=== PATIENT | male | born 1960 | race Caucasian/White ===

== ENCOUNTER → 2020-10-03 13:44 | Outpatient (CLI) | payer BC, SELFPAY ==
[2020-09-11 09:37] VITALS: BMI 22.8
--- NOTE | 2020-10-03 13:47 | RAD_ITS ---
STUDY: X-RAY - RIGHT KNEE REASON FOR EXAM: Male, 60 years old. Right knee pain-medial TECHNIQUE: 4 view(s) of the knee. COMPARISON: None. FINDINGS: Normal visualized distal femur. Normal visualized proximal tibia and fibula. Normal proximal tibiofibular articulation. Normal medial femorotibial compartment. Normal lateral femorotibial compartment. Normal patellofemoral articulation. The soft tissue structures are unremarkable. RAD/Knee 4 or More Views IMPRESSION: Normal x-ray examination of the knee. Electronically Signed: Juan Schulz DO at 21:09 EST Tel [phone], Service support ,
== END ==
PROVIDERS: PCP Family Medicine; Referring Provider Family Medicine; Visit Provider Family Medicine
DX: M17.11 Unilateral primary osteoarthritis, right knee (principal)
CPT/HCPCS: 73564

== ENCOUNTER → 2021-02-18 14:18 | Outpatient (CLI) | payer BC, SELFPAY ==
[2020-09-11 09:37] VITALS: BMI 22.8
--- NOTE | 2021-02-18 14:30 | RAD_ITS ---
STUDY: X-RAY - RIGHT HAND REASON FOR EXAM: Right hand pain, osteoarthritis. TECHNIQUE: 3 view(s) of the hand. COMPARISON: Radiographs 09/11/2020. FINDINGS: Normal radiocarpal articulation. Normal distal radioulnar joint. Normal visualized carpal bones. Normal carpal articulations There is resection arthroplasty of the carpometacarpal articulation of the thumb. Normal second through fifth carpometacarpal joints. Normal metacarpi. There is mild joint space narrowing of the metacarpophalangeal joint of the thumb. There is moderate joint space narrowing of the interphalangeal joint of the thumb. Normal proximal and distal phalanges of the thumb. There is a small subchondral cyst of the second metacarpal head as on the prior study. Otherwise, unremarkable metacarpophalangeal joints of the second through fifth fingers. There is joint space narrowing and marginal osteophytes of the distal interphalangeal joints of the second through fifth fingers with central erosive changes as on the prior study. Normal phalanges of the second through fifth fingers. The soft tissue structures are unremarkable. RAD/Hand Min 3 Views IMPRESSION: Erosive osteoarthritis. Resection arthroplasty of the first carpometacarpal articulation. Electronically Signed: Tom Brian MD at 12:27 EDT Tel , Service support ,
--- NOTE | 2021-02-18 14:30 | RAD_ITS ---
STUDY: X-RAY - LEFT HAND REASON FOR EXAM: Left hand pain, osteoarthritis. TECHNIQUE: 3 view(s) of the hand. COMPARISON: Radiographs 09/11/2020. FINDINGS: Normal radiocarpal articulation. Normal distal radioulnar joint. Normal visualized carpal bones. Normal carpal articulations There is resection arthroplasty of the carpometacarpal articulation of the thumb. Normal second through fifth carpometacarpal joints. Normal metacarpi. There is mild joint space narrowing of the metacarpophalangeal joint of the thumb. There is moderate joint space narrowing of the interphalangeal joint of the thumb. Normal proximal and distal phalanges of the thumb. Normal metacarpophalangeal joints of the second through fifth fingers. There is joint space narrowing of the distal interphalangeal joints of the second through fifth fingers with marginal osteophytes and central erosive changes of the second, third and fifth distal interphalangeal joints as on the prior study. Normal phalanges of the second through fifth fingers. The soft tissue structures are unremarkable. RAD/Hand Min 3 Views IMPRESSION: Erosive osteoarthritis. Resection arthroplasty of the first carpometacarpal articulation. Electronically Signed: Tom Brian MD at 12:28 EDT Tel , Service support ,
[2021-02-18 17:44] LABS: Absolute Lymphocyte Count 1.76 X10^3/uL (0.83-4.51); Basophil# 0.04 X10^3/uL; Basophil% 0.9 % (0-1); Eosinophil# 0.18 X10^3/uL; Eosinophils% 4.1 % (0-5); Hematocrit 43.2 % (40-54); Hemoglobin 13.8 g/dL (13.0-16.5); Lymphocyte # 1.76 X10^3/ul (4.0); Lymphocyte % 40.5 % (19-41); Mean Corp Hgb Conc 31.9 g/dL (32-36); Mean Corpuscular Hgb 30.4 pg (27.0-32.0); Mean Corpuscular Volume 95.2 fL (80-94); Mean Platelet Vol. 11.1 fl (6.2-12.0); Monocyte# 0.41 X10^3/uL; Monocyte% 9.4 % (0-10); NRBC Flagged by Analyzer 0 % (0-5); Neutrophil # 1.96 X10^3/uL (2.7-7.7); Neutrophil % 45.1 % (47-70); Platelet Count 325 K/mm3 (150-450); RBC Distribution Width CV 11.9 % (11.6-14.6); RBC Distribution Width SD 41.5 fl (35.1-43.9); Red Blood Count 4.54 M/mm3 (4.6-6.2); White Blood Count 4.4 K/mm3 (4.4-11.0)
[2021-02-18 18:05] LABS: ALB/GLOB Ratio 1.1 RATIO (0.9-2.4); AST(SGOT) 39 U/L (15-37); Alanine Aminotransfer ALT/SGPT 36 U/L (16-61); Albumin, Serum 4.2 g/dL (3.2-5.0); Alkaline Phosphatase 119 U/L (45-117); Anion Gap 7 (5-15); BUN 32 mg/dL (7-18); BUN/Creat Ratio 24.1 RATIO (10-20); CRP < 2.90 mg/L (0.0-3.0); Calcium,Total 9.7 mg/dL (8.5-10.1); Chloride 104 mmol/L (98-107); Creatinine, Serum 1.33 mg/dL (0.70-1.30); EST Glomerular Filtration Rate 58 mL/min (>60); Est Glom Filt Rate - Afr Amer 71 mL/min (>60); Globulin 3.7 g/dL (2.2-4.2); Glucose 91 mg/dL (74-106); Potassium 4.3 mmol/L (3.5-5.1); Protein, Total 7.9 g/dL (6.4-8.2); Rheumatoid Factor < 10.0 IU/mL (<15); Sodium Level 140 mmol/L (136-145)
[2021-02-18 18:14] LABS: Erythrocyte Sedimentation Rate 14 mm/hr (0-20)
[2021-02-19 09:43] LABS: Hepatitis B Surface Antibody Non-Reactive; Hepatitis B Surface Antigen Non-Reactive (Nonreactive); Hepatitis C Antibody Non-Reactive (Nonreactive)
[2021-02-20 16:18] LABS: ANTINUCLEAR ANTIBODIES DIRECT Negative (Negative)
[2021-02-21 07:50] LABS: CCP IgG Antibodies 5 units (0-19)
== END ==
PROVIDERS: PCP Family Medicine; Referring Provider Internal Medicine Rheumatology; Visit Provider Internal Medicine Rheumatology
DX: L40.59 Other psoriatic arthropathy (principal); L40.8 Other psoriasis; M19.041 Primary osteoarthritis, right hand; M47.892 Other spondylosis, cervical region; K58.0 Irritable bowel syndrome with diarrhea; F32.9 Major depressive disorder, single episode, unspecified; F41.9 Anxiety disorder, unspecified; J45.909 Unspecified asthma, uncomplicated; E78.5 Hyperlipidemia, unspecified
CPT/HCPCS: 36415; 73130; 80053; 85025; 85652; 86038; 86140; 86200; 86431; 86706; 86803; 87340

== ENCOUNTER → 2021-04-27 08:02 | Outpatient (CLI) | payer BC, SELFPAY ==
[2020-09-11 09:37] VITALS: BMI 22.8
--- NOTE | 2021-04-27 08:04 | US_ITS ---
STUDY: ABDOMINAL ULTRASOUND - RIGHT UPPER QUADRANT REASON FOR VISIT: Male, 61 years old ELEVATED LFT TECHNIQUE: Ultrasound evaluation of the right upper quadrant was performed with real-time and static sneed-scale imaging. TECHNICAL QUALITY: Adequate. COMPARISON: None. FINDINGS: Liver: The liver measures 17.8 cm. There is a mild degree of increased echogenicity consistent with mild degree of fatty infiltration. The bile ducts are within normal limits. There is hepatic color flow. The direction of portal flow is hepatopetal. There is no demonstrated mass lesion. Gallbladder: Normal distended gallbladder. The gallbladder wall measures 1.9 mm. There is a negative sonographic Ghosh''s sign. There is no pericholecystic fluid. There are no gallstones. Common Bile Duct (C.B.D.): The common bile duct measures 2.9 mm. Pancreas: Normal size of the head, body and tail of the pancreas. There is increased echogenicity of the pancreas. There is no demonstrated pancreatic mass or cyst. Right Kidney: Normal size of the right kidney. The right kidney measures 10.9 cm x 4.6 cm x 5.1 cm. Normal renal cortex. The right cortex measures 1.3 cm. There is no demonstrated renal mass or cyst. There is no right hydronephrosis. US/Liver IMPRESSION: Mild degree of fatty infiltration of the liver. Electronically Signed: Elmer Shay MD at 10:21 EDT , Service support ,
[2021-04-27 10:02] LABS: ALB/GLOB Ratio 1.1 RATIO (0.9-2.4); AST(SGOT) 31 U/L (15-37); Alanine Aminotransfer ALT/SGPT 26 U/L (16-61); Albumin, Serum 3.7 g/dL (3.2-5.0); Alkaline Phosphatase 102 U/L (45-117); Anion Gap 8 (5-15); BUN 28 mg/dL (7-18); BUN/Creat Ratio 22.6 RATIO (10-20); Calcium,Total 9.1 mg/dL (8.5-10.1); Chloride 103 mmol/L (98-107); Creatinine, Serum 1.24 mg/dL (0.70-1.30); EST Glomerular Filtration Rate 63 mL/min (>60); Est Glom Filt Rate - Afr Amer 76 mL/min (>60); Globulin 3.5 g/dL (2.2-4.2); Glucose 87 mg/dL (74-106); Potassium 4.1 mmol/L (3.5-5.1); Protein, Total 7.2 g/dL (6.4-8.2); Sodium Level 142 mmol/L (136-145)
== END ==
PROVIDERS: PCP Family Medicine; Referring Provider Internal Medicine Rheumatology; Visit Provider Internal Medicine Rheumatology
DX: L40.59 Other psoriatic arthropathy (principal); L40.8 Other psoriasis; M19.041 Primary osteoarthritis, right hand; M47.892 Other spondylosis, cervical region; K58.0 Irritable bowel syndrome with diarrhea; F41.9 Anxiety disorder, unspecified; J45.909 Unspecified asthma, uncomplicated; E78.5 Hyperlipidemia, unspecified
CPT/HCPCS: 36415; 76705; 80053

== ENCOUNTER → 2021-07-01 16:09 | Outpatient (CLI) | payer BC, SELFPAY ==
[2020-09-11 09:37] VITALS: BMI 22.8
[2021-07-01 17:45] LABS: Absolute Lymphocyte Count 1.71 X10^3/uL (0.83-4.51); Absolute Neutrophil Count 2.3 X10^3/uL (2.0-7.7); Basophil# 0.04 X10^3/uL; Basophil% 0.8 % (0-1); Eosinophil# 0.28 X10^3/uL; Eosinophils% 5.7 % (0-5); Hematocrit 37.3 % (40-54); Hemoglobin 12.4 g/dL (13.0-16.5); Lymphocyte # 1.71 X10^3/ul (0.83-4.51); Lymphocyte % 34.9 % (19-41); Mean Corp Hgb Conc 33.2 g/dL (32-36); Mean Corpuscular Volume 96.4 fL (80-94); Monocyte# 0.52 X10^3/uL; Monocyte% 10.6 % (0-10); NRBC Flagged by Analyzer 0 % (0-5); Neutrophil # 2.32 X10^3/uL (2.7-7.7); Neutrophil % 47.4 % (47-70); Platelet Count 321 K/mm3 (150-450); RBC Distribution Width CV 13.1 % (11.6-14.6); RBC Distribution Width SD 45.1 fl (35.1-43.9); Red Blood Count 3.87 M/mm3 (4.6-6.2); White Blood Count 4.9 K/mm3 (4.4-11.0)
[2021-07-01 18:13] LABS: ALB/GLOB Ratio 1.1 RATIO (0.9-2.4); AST(SGOT) 27 U/L (15-37); Alanine Aminotransfer ALT/SGPT 32 U/L (16-61); Albumin, Serum 3.7 g/dL (3.2-5.0); Alkaline Phosphatase 93 U/L (45-117); Anion Gap 5 (5-15); BUN 25 mg/dL (7-18); BUN/Creat Ratio 20.2 RATIO (10-20); Chloride 103 mmol/L (98-107); Creatinine, Serum 1.24 mg/dL (0.70-1.30); EST Glomerular Filtration Rate 63 mL/min (>60); Est Glom Filt Rate - Afr Amer 76 mL/min (>60); Globulin 3.5 g/dL (2.2-4.2); Glucose 120 mg/dL (74-106); Potassium 3.9 mmol/L (3.5-5.1); Protein, Total 7.2 g/dL (6.4-8.2); Sodium Level 139 mmol/L (136-145)
== END ==
PROVIDERS: PCP Family Medicine; Referring Provider Internal Medicine Rheumatology; Visit Provider Internal Medicine Rheumatology
DX: L40.59 Other psoriatic arthropathy (principal); L40.8 Other psoriasis; M19.041 Primary osteoarthritis, right hand; K76.0 Fatty (change of) liver, not elsewhere classified; M47.892 Other spondylosis, cervical region; K58.0 Irritable bowel syndrome with diarrhea; F41.9 Anxiety disorder, unspecified; J45.909 Unspecified asthma, uncomplicated; E78.5 Hyperlipidemia, unspecified
CPT/HCPCS: 36415; 80053; 85025

== ENCOUNTER → 2021-08-11 13:13 | Outpatient (CLI) | payer BC, SELFPAY ==
--- NOTE | 2021-08-11 13:15 | RAD_ITS ---
STUDY: X-RAY CHEST REASON FOR EXAM: Male, 61 years old. Cough. COVID symptoms. TECHNIQUE: PA and lateral views of the chest. COMPARISON: None. FINDINGS: The lungs are well expanded. There is diffuse interstitial infiltrates at the lung bases. There is no demonstrated pleural abnormality. Normal size heart. Normal mediastinum and [place]. Normal visualized pulmonary arteries. Normal visualized aortic arch and descending thoracic aorta. Normal visualized thoracic spine. Normal visualized ribs, clavicles, and shoulders. There is no demonstrated abnormality of the visualized soft tissue structures of the upper abdomen. RAD/Chest PA and Lateral IMPRESSION: Bibasilar infiltrates. The findings are consistent with nondiagnostic COVID pneumonia. Electronically Signed: Freddy Powers DO at 23:49 EDT Tel [phone], Service support ,
== END ==
PROVIDERS: PCP Family Medicine; Referring Provider Family Medicine; Visit Provider Family Medicine
DX: R05 Cough (principal)
CPT/HCPCS: 71046

== ENCOUNTER → 2021-09-14 07:34 | Outpatient (CLI) | payer BC, SELFPAY ==
[2021-09-14 10:19] LABS: Absolute Lymphocyte Count 2.08 X10^3/uL (0.83-4.51); Absolute Neutrophil Count 1.2 X10^3/uL (2.0-7.7); Basophil# 0.04 X10^3/uL; Basophil% 1.1 % (0-1); Eosinophil# 0.18 X10^3/uL; Eosinophils% 4.8 % (0-5); Hematocrit 38.6 % (40-54); Hemoglobin 12.3 g/dL (13.0-16.5); Lymphocyte # 2.08 X10^3/ul (0.83-4.51); Lymphocyte % 55.8 % (19-41); Mean Corp Hgb Conc 31.9 g/dL (32-36); Mean Corpuscular Hgb 31.2 pg (27.0-32.0); Mean Platelet Vol. 10.3 fl (6.2-12.0); Monocyte# 0.21 X10^3/uL; Monocyte% 5.6 % (0-10); NRBC Flagged by Analyzer 0 % (0-5); Neutrophil # 1.21 X10^3/uL (2.7-7.7); Neutrophil % 32.4 % (47-70); Platelet Count 330 K/mm3 (150-450); RBC Distribution Width CV 14.2 % (11.6-14.6); RBC Distribution Width SD 50.6 fl (35.1-43.9); Red Blood Count 3.94 M/mm3 (4.6-6.2); White Blood Count 3.7 K/mm3 (4.4-11.0)
[2021-09-14 10:47] LABS: ALB/GLOB Ratio 0.9 RATIO (0.9-2.4); AST(SGOT) 27 U/L (15-37); Alanine Aminotransfer ALT/SGPT 29 U/L (16-61); Albumin, Serum 3.6 g/dL (3.2-5.0); Alkaline Phosphatase 103 U/L (45-117); Anion Gap 8 (5-15); BUN 30 mg/dL (7-18); BUN/Creat Ratio 25.6 RATIO (10-20); Calcium,Total 9.4 mg/dL (8.5-10.1); Chloride 102 mmol/L (98-107); Cholesterol 187 mg/dL (200); Creatinine, Serum 1.17 mg/dL (0.70-1.30); EST Glomerular Filtration Rate 67 mL/min (>60); Est Glom Filt Rate - Afr Amer 82 mL/min (>60); Globulin 3.9 g/dL (2.2-4.2); Glucose 93 mg/dL (74-106); High Density Lipoprotein 46 mg/dL; Potassium 4.1 mmol/L (3.5-5.1); Protein, Total 7.5 g/dL (6.4-8.2); Sodium Level 137 mmol/L (136-145); Triglycerides 180 mg/dL; Very Low Density Lipoprotein 36 mg/dL (5-40)
== END ==
PROVIDERS: PCP Family Medicine; Referring Provider Family Medicine; Visit Provider Family Medicine
DX: L40.50 Arthropathic psoriasis, unspecified (principal); M19.041 Primary osteoarthritis, right hand; M47.892 Other spondylosis, cervical region; E78.5 Hyperlipidemia, unspecified; K76.0 Fatty (change of) liver, not elsewhere classified; Z79.899 Other long term (current) drug therapy; K58.0 Irritable bowel syndrome with diarrhea; F41.9 Anxiety disorder, unspecified; J45.909 Unspecified asthma, uncomplicated
CPT/HCPCS: 36415; 80053; 80061; 85025

== ENCOUNTER → 2021-10-29 09:53 | Outpatient (CLI) | payer BC, SELFPAY ==
[2021-10-29 12:30] LABS: Absolute Lymphocyte Count 2.08 X10^3/uL (0.83-4.51); Absolute Neutrophil Count 2.6 X10^3/uL (2.0-7.7); Basophil# 0.06 X10^3/uL; Basophil% 1.1 % (0-1); Eosinophil# 0.17 X10^3/uL; Eosinophils% 3.2 % (0-5); Hematocrit 38.6 % (40-54); Hemoglobin 12.6 g/dL (13.0-16.5); Lymphocyte # 2.08 X10^3/ul (0.83-4.51); Lymphocyte % 38.9 % (19-41); Mean Corp Hgb Conc 32.6 g/dL (32-36); Mean Corpuscular Hgb 31.7 pg (27.0-32.0); Mean Platelet Vol. 10.3 fl (6.2-12.0); Monocyte# 0.45 X10^3/uL; Monocyte% 8.4 % (0-10); NRBC Flagged by Analyzer 0 % (0-5); Neutrophil # 2.56 X10^3/uL (2.7-7.7); Neutrophil % 47.8 % (47-70); Platelet Count 325 K/mm3 (150-450); RBC Distribution Width CV 14.5 % (11.6-14.6); RBC Distribution Width SD 50.4 fl (35.1-43.9); Red Blood Count 3.98 M/mm3 (4.6-6.2); White Blood Count 5.4 K/mm3 (4.4-11.0)
[2021-10-29 12:42] LABS: AST(SGOT) 31 U/L (15-37); Alanine Aminotransfer ALT/SGPT 36 U/L (16-61); Albumin, Serum 3.7 g/dL (3.2-5.0); Alkaline Phosphatase 93 U/L (45-117); Anion Gap 6 (5-15); BUN 23 mg/dL (7-18); BUN/Creat Ratio 18.7 RATIO (10-20); Calcium,Total 9.6 mg/dL (8.5-10.1); Chloride 106 mmol/L (98-107); Creatinine, Serum 1.23 mg/dL (0.70-1.30); EST Glomerular Filtration Rate 64 mL/min (>60); Est Glom Filt Rate - Afr Amer 77 mL/min (>60); Globulin 3.7 g/dL (2.2-4.2); Glucose 112 mg/dL (74-106); Potassium 4.1 mmol/L (3.5-5.1); Protein, Total 7.4 g/dL (6.4-8.2); Sodium Level 142 mmol/L (136-145)
== END ==
PROVIDERS: PCP Family Medicine; Referring Provider Internal Medicine Rheumatology; Visit Provider Internal Medicine Rheumatology
DX: L40.59 Other psoriatic arthropathy (principal); Z79.899 Other long term (current) drug therapy; L40.8 Other psoriasis; M19.041 Primary osteoarthritis, right hand; K76.0 Fatty (change of) liver, not elsewhere classified; M47.892 Other spondylosis, cervical region; K58.0 Irritable bowel syndrome with diarrhea; F41.9 Anxiety disorder, unspecified; J45.909 Unspecified asthma, uncomplicated; E78.5 Hyperlipidemia, unspecified
CPT/HCPCS: 36415; 80053; 85025

== ENCOUNTER 2021-12-30 08:47 | Outpatient (CLI) | payer BC, SELFPAY ==
[2021-12-30 10:24] LABS: Absolute Lymphocyte Count 2.15 X10^3/uL (0.83-4.51); Absolute Neutrophil Count 2.7 X10^3/uL (2.0-7.7); Basophil# 0.05 X10^3/uL; Basophil% 0.9 % (0-1); Eosinophils% 3.6 % (0-5); Hemoglobin 12.9 g/dL (13.0-16.5); Lymphocyte # 2.15 X10^3/ul (0.83-4.51); Mean Corp Hgb Conc 33.9 g/dL (32-36); Mean Corpuscular Hgb 32.8 pg (27.0-32.0); Mean Corpuscular Volume 96.7 fL (80-94); Mean Platelet Vol. 9.9 fl (6.2-12.0); Monocyte# 0.39 X10^3/uL; Monocyte% 7.1 % (0-10); NRBC Flagged by Analyzer 0 % (0-5); Platelet Count 311 K/mm3 (150-450); RBC Distribution Width CV 13.8 % (11.6-14.6); RBC Distribution Width SD 48.3 fl (35.1-43.9); Red Blood Count 3.93 M/mm3 (4.6-6.2); White Blood Count 5.5 K/mm3 (4.4-11.0)
[2021-12-30 11:00] LABS: ALB/GLOB Ratio 1.1 RATIO (0.9-2.4); AST(SGOT) 28 U/L (15-37); Alanine Aminotransfer ALT/SGPT 33 U/L (16-61); Albumin, Serum 3.7 g/dL (3.2-5.0); Alkaline Phosphatase 74 U/L (45-117); Anion Gap 4 (5-15); BUN 25 mg/dL (7-18); BUN/Creat Ratio 20.2 RATIO (10-20); Chloride 107 mmol/L (98-107); Creatinine, Serum 1.24 mg/dL (0.70-1.30); EST Glomerular Filtration Rate 63 mL/min (>60); Est Glom Filt Rate - Afr Amer 76 mL/min (>60); Globulin 3.3 g/dL (2.2-4.2); Glucose 98 mg/dL (74-106); Potassium 3.8 mmol/L (3.5-5.1); Sodium Level 139 mmol/L (136-145)
== END 2021-12-30 23:59 | disposition home or self-care (01) ==
LOC: MTLAB 08:49
PROVIDERS: PCP Family Medicine; Referring Provider Internal Medicine Rheumatology; Visit Provider Internal Medicine Rheumatology
DX: L40.59 Other psoriatic arthropathy (principal); L40.8 Other psoriasis; M19.041 Primary osteoarthritis, right hand; M19.042 Primary osteoarthritis, left hand; K76.0 Fatty (change of) liver, not elsewhere classified; M47.892 Other spondylosis, cervical region; K58.0 Irritable bowel syndrome with diarrhea; F41.9 Anxiety disorder, unspecified; J45.909 Unspecified asthma, uncomplicated; J30.9 Allergic rhinitis, unspecified; E78.5 Hyperlipidemia, unspecified; Z79.899 Other long term (current) drug therapy
CPT/HCPCS: 36415; 80053; 85025

== ENCOUNTER 2022-02-23 10:39 | Outpatient (CLI) | payer BC, SELFPAY ==
[2022-02-23 12:04] LABS: Absolute Lymphocyte Count 1.47 X10^3/uL (0.83-4.51); Absolute Neutrophil Count 3.2 X10^3/uL (2.0-7.7); Basophil# 0.04 X10^3/uL; Basophil% 0.8 % (0-1); Eosinophil# 0.17 X10^3/uL; Eosinophils% 3.3 % (0-5); Hematocrit 37.5 % (40-54); Hemoglobin 12.4 g/dL (13.0-16.5); Lymphocyte # 1.47 X10^3/ul (0.83-4.51); Lymphocyte % 28.2 % (19-41); Mean Corp Hgb Conc 33.1 g/dL (32-36); Mean Corpuscular Volume 99.7 fL (80-94); Mean Platelet Vol. 10.3 fl (6.2-12.0); Monocyte# 0.32 X10^3/uL; Monocyte% 6.1 % (0-10); NRBC Flagged by Analyzer 0 % (0-5); Neutrophil % 61.4 % (47-70); Platelet Count 349 K/mm3 (150-450); RBC Distribution Width CV 13.1 % (11.6-14.6); RBC Distribution Width SD 46.7 fl (35.1-43.9); Red Blood Count 3.76 M/mm3 (4.6-6.2); White Blood Count 5.2 K/mm3 (4.4-11.0)
[2022-02-23 12:24] LABS: ALB/GLOB Ratio 1.2 RATIO (0.9-2.4); AST(SGOT) 39 U/L (15-37); Alanine Aminotransfer ALT/SGPT 41 U/L (16-61); Albumin, Serum 4.1 g/dL (3.2-5.0); Alkaline Phosphatase 98 U/L (45-117); Anion Gap 0 (5-15); BUN 22 mg/dL (7-18); BUN/Creat Ratio 17.1 RATIO (10-20); Calcium,Total 9.6 mg/dL (8.5-10.1); Chloride 107 mmol/L (98-107); Creatinine, Serum 1.29 mg/dL (0.70-1.30); EST Glomerular Filtration Rate 60 mL/min (>60); Est Glom Filt Rate - Afr Amer 73 mL/min (>60); Globulin 3.5 g/dL (2.2-4.2); Glucose 93 mg/dL (74-106); Potassium 4.3 mmol/L (3.5-5.1); Protein, Total 7.6 g/dL (6.4-8.2); Sodium Level 139 mmol/L (136-145)
== END 2022-02-23 23:59 | disposition home or self-care (01) ==
LOC: MTLAB 10:41
PROVIDERS: PCP Family Medicine; Referring Provider Internal Medicine Rheumatology; Visit Provider Internal Medicine Rheumatology
DX: L40.59 Other psoriatic arthropathy (principal); Z79.899 Other long term (current) drug therapy; L40.8 Other psoriasis; M19.041 Primary osteoarthritis, right hand; K76.0 Fatty (change of) liver, not elsewhere classified; M47.892 Other spondylosis, cervical region; K58.0 Irritable bowel syndrome with diarrhea; F41.9 Anxiety disorder, unspecified; J45.909 Unspecified asthma, uncomplicated; J30.9 Allergic rhinitis, unspecified; E78.5 Hyperlipidemia, unspecified
CPT/HCPCS: 36415; 80053; 85025

== ENCOUNTER → 2022-04-26 | Outpatient (CLI) | payer BC, SELFPAY ==
[2022-04-26 12:31] LABS: Absolute Lymphocyte Count 1.45 X10^3/uL (0.83-4.51); Absolute Neutrophil Count 1.8 X10^3/uL (2.0-7.7); Basophil# 0.03 X10^3/uL; Basophil% 0.8 % (0-1); Eosinophil# 0.15 X10^3/uL; Hematocrit 39.3 % (40-54); Hemoglobin 12.8 g/dL (13.0-16.5); Lymphocyte # 1.45 X10^3/ul (0.83-4.51); Lymphocyte % 38.3 % (19-41); Mean Corp Hgb Conc 32.6 g/dL (32-36); Mean Corpuscular Hgb 32.7 pg (27.0-32.0); Mean Corpuscular Volume 100.3 fL (80-94); Mean Platelet Vol. 10.2 fl (6.2-12.0); Monocyte# 0.31 X10^3/uL; Monocyte% 8.2 % (0-10); NRBC Flagged by Analyzer 0 % (0-5); Neutrophil # 1.84 X10^3/uL (2.7-7.7); Neutrophil % 48.4 % (47-70); Platelet Count 311 K/mm3 (150-450); RBC Distribution Width CV 13.2 % (11.6-14.6); RBC Distribution Width SD 47.9 fl (35.1-43.9); Red Blood Count 3.92 M/mm3 (4.6-6.2); White Blood Count 3.8 K/mm3 (4.4-11.0)
[2022-04-26 12:39] LABS: ALB/GLOB Ratio 1.1 RATIO (0.9-2.4); AST(SGOT) 41 U/L (15-37); Alanine Aminotransfer ALT/SGPT 42 U/L (16-61); Albumin, Serum 3.7 g/dL (3.2-5.0); Alkaline Phosphatase 84 U/L (45-117); Anion Gap 5 (5-15); BUN 29 mg/dL (7-18); Calcium,Total 9.1 mg/dL (8.5-10.1); Chloride 103 mmol/L (98-107); Creatinine, Serum 1.32 mg/dL (0.70-1.30); EST Glomerular Filtration Rate 59 mL/min (>60); Est Glom Filt Rate - Afr Amer 71 mL/min (>60); Globulin 3.3 g/dL (2.2-4.2); Glucose 107 mg/dL (74-106); Potassium 4.4 mmol/L (3.5-5.1); Sodium Level 137 mmol/L (136-145)
== END | disposition home or self-care (01) ==
LOC: MTLAB 11:07
PROVIDERS: PCP Family Medicine; Referring Provider Internal Medicine Rheumatology; Visit Provider Internal Medicine Rheumatology
DX: L40.59 Other psoriatic arthropathy (principal); L40.8 Other psoriasis; M19.041 Primary osteoarthritis, right hand; K76.0 Fatty (change of) liver, not elsewhere classified; M47.892 Other spondylosis, cervical region; K58.0 Irritable bowel syndrome with diarrhea; F41.9 Anxiety disorder, unspecified; J45.909 Unspecified asthma, uncomplicated; E78.5 Hyperlipidemia, unspecified; Z79.899 Other long term (current) drug therapy
CPT/HCPCS: 36415; 80053; 85025

== ENCOUNTER → 2022-05-26 | Outpatient (CLI) | payer BC, SELFPAY ==
[2022-05-26 15:28] LABS: ALB/GLOB Ratio 1.1 RATIO (0.9-2.4); AST(SGOT) 42 U/L (15-37); Alanine Aminotransfer ALT/SGPT 35 U/L (16-61); Albumin, Serum 3.9 g/dL (3.2-5.0); Alkaline Phosphatase 84 U/L (45-117); Anion Gap 4 (5-15); BUN 28 mg/dL (7-18); BUN/Creat Ratio 20.6 RATIO (10-20); Calcium,Total 9.4 mg/dL (8.5-10.1); Chloride 102 mmol/L (98-107); Creatinine, Serum 1.36 mg/dL (0.70-1.30); EST Glomerular Filtration Rate 57 mL/min (>60); Est Glom Filt Rate - Afr Amer 68 mL/min (>60); Globulin 3.4 g/dL (2.2-4.2); Glucose 99 mg/dL (74-106); Protein, Total 7.3 g/dL (6.4-8.2); Sodium Level 138 mmol/L (136-145)
== END | disposition home or self-care (01) ==
LOC: MTLAB 13:51
PROVIDERS: PCP Family Medicine; Referring Provider Internal Medicine Rheumatology; Visit Provider Internal Medicine Rheumatology
DX: L40.59 Other psoriatic arthropathy (principal); L40.8 Other psoriasis; M19.041 Primary osteoarthritis, right hand; K76.0 Fatty (change of) liver, not elsewhere classified; M47.892 Other spondylosis, cervical region; K58.0 Irritable bowel syndrome with diarrhea; F41.9 Anxiety disorder, unspecified; J45.909 Unspecified asthma, uncomplicated; J30.9 Allergic rhinitis, unspecified; E78.5 Hyperlipidemia, unspecified; Z79.899 Other long term (current) drug therapy
CPT/HCPCS: 36415; 80053

== ENCOUNTER → 2022-08-03 | Outpatient (CLI) | payer SELFPAY ==
[2022-08-03 12:17] LABS: Absolute Lymphocyte Count 1.91 X10^3/uL (0.83-4.51); Absolute Neutrophil Count 2.9 X10^3/uL (2.0-7.7); Basophil# 0.04 X10^3/uL; Basophil% 0.7 % (0-1); Eosinophil# 0.14 X10^3/uL; Eosinophils% 2.6 % (0-5); Hematocrit 38.2 % (40-54); Hemoglobin 12.4 g/dL (13.0-16.5); Lymphocyte # 1.91 X10^3/ul (0.83-4.51); Lymphocyte % 35.3 % (19-41); Mean Corp Hgb Conc 32.5 g/dL (32-36); Mean Corpuscular Hgb 32.4 pg (27.0-32.0); Mean Corpuscular Volume 99.7 fL (80-94); Monocyte# 0.37 X10^3/uL; Monocyte% 6.8 % (0-10); NRBC Flagged by Analyzer 0 % (0-5); Neutrophil # 2.89 X10^3/uL (2.7-7.7); Neutrophil % 53.5 % (47-70); Platelet Count 320 K/mm3 (150-450); RBC Distribution Width CV 13.2 % (11.6-14.6); RBC Distribution Width SD 48.2 fl (35.1-43.9); Red Blood Count 3.83 M/mm3 (4.6-6.2); White Blood Count 5.4 K/mm3 (4.4-11.0)
[2022-08-03 12:38] LABS: ALB/GLOB Ratio 1.1 RATIO (0.9-2.4); AST(SGOT) 24 U/L (15-37); Alanine Aminotransfer ALT/SGPT 29 U/L (16-61); Albumin, Serum 3.6 g/dL (3.2-5.0); Alkaline Phosphatase 69 U/L (45-117); Anion Gap 6 (5-15); BUN 28 mg/dL (7-18); BUN/Creat Ratio 23.3 RATIO (10-20); Calcium,Total 8.9 mg/dL (8.5-10.1); Chloride 104 mmol/L (98-107); EST Glomerular Filtration Rate 65 mL/min (>60); Est Glom Filt Rate - Afr Amer 79 mL/min (>60); Globulin 3.2 g/dL (2.2-4.2); Glucose 104 mg/dL (74-106); Potassium 3.8 mmol/L (3.5-5.1); Protein, Total 6.8 g/dL (6.4-8.2); Sodium Level 139 mmol/L (136-145)
== END | disposition home or self-care (01) ==
LOC: MTLAB 09:50
PROVIDERS: PCP Family Medicine; Referring Provider Internal Medicine Rheumatology; Visit Provider Internal Medicine Rheumatology
DX: L40.59 Other psoriatic arthropathy (principal); Z79.899 Other long term (current) drug therapy; L40.8 Other psoriasis; M19.041 Primary osteoarthritis, right hand; K76.0 Fatty (change of) liver, not elsewhere classified; M47.892 Other spondylosis, cervical region; K58.0 Irritable bowel syndrome with diarrhea; F41.9 Anxiety disorder, unspecified; J45.909 Unspecified asthma, uncomplicated; E78.5 Hyperlipidemia, unspecified
CPT/HCPCS: 36415; 80053; 85025

== ENCOUNTER → 2022-12-10 | Outpatient (CLI) | payer BC, SELFPAY ==
[2022-12-10 15:29] LABS: Absolute Lymphocyte Count 1.49 X10^3/uL (0.83-4.51); Absolute Neutrophil Count 3.3 X10^3/uL (2.0-7.7); Basophil# 0.06 X10^3/uL; Eosinophil# 0.25 X10^3/uL; Eosinophils% 4.3 % (0-5); Hemoglobin 12.8 g/dL (13.0-16.5); Lymphocyte # 1.49 X10^3/ul (0.83-4.51); Lymphocyte % 25.7 % (19-41); Mean Corp Hgb Conc 32.8 g/dL (32-36); Mean Corpuscular Volume 97.5 fL (80-94); Mean Platelet Vol. 10.5 fl (6.2-12.0); Monocyte# 0.69 X10^3/uL; Monocyte% 11.9 % (0-10); NRBC Flagged by Analyzer 0 % (0-5); Neutrophil # 3.29 X10^3/uL (2.7-7.7); Neutrophil % 56.8 % (47-70); Platelet Count 359 K/mm3 (150-450); RBC Distribution Width CV 12.7 % (11.6-14.6); RBC Distribution Width SD 44.8 fl (35.1-43.9); White Blood Count 5.8 K/mm3 (4.4-11.0)
[2022-12-10 16:18] LABS: ALB/GLOB Ratio 1.1 RATIO (0.9-2.4); AST(SGOT) 35 U/L (15-37); Alanine Aminotransfer ALT/SGPT 35 U/L (16-61); Albumin, Serum 3.7 g/dL (3.2-5.0); Alkaline Phosphatase 86 U/L (45-117); Anion Gap 7 (5-15); BUN 21 mg/dL (7-18); BUN/Creat Ratio 17.2 RATIO (10-20); Calcium,Total 9.4 mg/dL (8.5-10.1); Chloride 104 mmol/L (98-107); Creatinine, Serum 1.22 mg/dL (0.70-1.30); EST Glomerular Filtration Rate 64 mL/min (>60); Est Glom Filt Rate - Afr Amer 77 mL/min (>60); Globulin 3.5 g/dL (2.2-4.2); Glucose 100 mg/dL (74-106); Potassium 4.1 mmol/L (3.5-5.1); Protein, Total 7.2 g/dL (6.4-8.2); Sodium Level 139 mmol/L (136-145)
== END | disposition home or self-care (01) ==
LOC: MTLAB 12:37
PROVIDERS: PCP Family Medicine; Referring Provider Internal Medicine Rheumatology; Visit Provider Internal Medicine Rheumatology
DX: Z79.899 Other long term (current) drug therapy (principal); L40.59 Other psoriatic arthropathy; L40.8 Other psoriasis; M19.041 Primary osteoarthritis, right hand; K76.0 Fatty (change of) liver, not elsewhere classified; M47.892 Other spondylosis, cervical region; K58.0 Irritable bowel syndrome with diarrhea; F41.9 Anxiety disorder, unspecified; J45.909 Unspecified asthma, uncomplicated; E78.5 Hyperlipidemia, unspecified
CPT/HCPCS: 36415; 80053; 85025

== ENCOUNTER → 2022-12-27 | Outpatient (CLI) | payer BC, SELFPAY ==
[2022-12-27 10:45] LABS: Cholesterol 194 mg/dL (200); High Density Lipoprotein 41 mg/dL; Triglycerides 178 mg/dL; Very Low Density Lipoprotein 36 mg/dL (5-40)
== END | disposition home or self-care (01) ==
LOC: MTLAB 08:12
PROVIDERS: PCP Family Medicine; Referring Provider Family Medicine; Visit Provider Family Medicine
DX: E78.5 Hyperlipidemia, unspecified (principal)
CPT/HCPCS: 36415; 80061

== ENCOUNTER → 2023-01-10 | Outpatient (CLI) | payer BC, SELFPAY ==
--- NOTE | 2023-01-10 11:30 | RAD_ITS ---
STUDY: X-RAY - CERVICAL SPINE REASON FOR EXAM: Male, 62 years old. Chronic neck pain. TECHNIQUE: 4 view(s) of the cervical spine were obtained including oblique views.. COMPARISON: None FINDINGS: There are degenerative changes of the anterior atlantoaxial articulation. Normal odontoid process. There is straightening of the normal cervical lordosis. There is multi-level endplate spondylosis. There is multi-level degenerative disc disease with multilevel disc space narrowing. Normal visualized intervertebral neuroforamina. The soft tissue structures are unremarkable. RAD/Cerv Spine 4 or 5 Views IMPRESSION: Loss of the normal cervical lordosis. Multilevel disc space narrowing and spondylosis. Electronically Signed: Elmer Shay MD at 12:44 EST ,
== END | disposition home or self-care (01) ==
LOC: MTRAD 11:22
PROVIDERS: PCP Family Medicine; Referring Provider Family Medicine; Visit Provider Family Medicine
DX: M47.812 Spondylosis without myelopathy or radiculopathy, cervical region (principal)
CPT/HCPCS: 72050

== ENCOUNTER 2023-02-14 10:30 | Outpatient (RCR) | payer BC, SELFPAY ==
--- NOTE | 2023-01-20 16:22 | HP.PTEVAL ---
Patient's Visit Information NICOLE LONDONO is a 62 year old M referred to Physical Therapy by Dr. Leonarda Hare MD with a diagnosis of Cervical Spond. Date of Evaluation: 01/20/23 Physical Therapist: Lucy Urena DPT - Visit Plan Frequency: 2x /Week Duration: 4 Weeks Plan: Focus on postural correction, manual therapy to sub occipitals and cervical spine with US as mod of choice. HEP Given IE: postural education, workspace ergonomics, scap retraction, chin tucks, UT and levator stretch - Subjective Patient reports that he has had neck pain since 2012 (insidious onset) he has dealt with it since 2012 on Mobic/Meloxicam and he saw MD who took him off. He saw his PCP who did x-rays which showed OA and she sent him to PT. He went to see a chiro in 2012 and he kept trying to crack his neck and never went back. He has neck pain all the time. The pain is located along the right side paraspinals that when he turns to the right he has suboccipital area. He only had pain on the right but its now left too. He has pain in CT junction with pain with extension, no pain with flexion. Worst: 3/10. Agg: end of day, tired and reading. Best: 11/30. Eases: Acetaminophen. Sleep: feels then it goes away- right side sleeper. Describes the pain as dull achy but it grabs when he moves to quickly. No radiating pain- no N/T. 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 Office he has a desk but at home he is sitting on the couch. No CADENA, blurred vision or dizziness. Right hand dominate. She just put him on Plaquenil which helps with helps with hands but not his neck. PMHx/Meds: no changes scanned in chart. - Objective Posture: FH, RS- can correct but does not maintain. Gait: good arm swing and trunk rotation. Palpation: tender along parapsinals, sub occipitals, upper trap, levator. ROM: WFL in all planes but reports pain with SB and rotation. Strength: Scap: fair minus, Shoulder: 4+/5, Elbow: 5/5, Wrist: 5/5 - Balance/Special Test Scores Oswestry Neck Score: 7 - Goals Goal 1:: Patient will be I with HEP and progression Goal Time Frame: 4-6 Weeks Goal 2:: Patient will maintain proper posture t/o tx session to demo increased scap s/s Goal Time Frame: 4-6 Weeks Goal 3:: Patient will report 80% improvement Goal Time Frame: 4-6 Weeks - Rehabilitation Potential Physical Therapy Diagnosis: Patient presents with hypomobility- he has decreased scap s/s and muscular endurance leading to poor posture and increased pain with ADL's. Rehabilitation Potential: Good - Anticipated Interventions Patient/Client Instruction: Educate patient on: Benefits of Fitness Program Therapeutic Exercise to Include: Strength training, Endurance training, Balance training, Coordination, Agility training, Body mechanics, Postural training, Flexibilty training, Neuromotor development, Dynamic Lumbar Stabilization, Scapular Strength/Stabilization For the Purpose of:: To improve muscle performance and motor function TENS: Yes Cryotherapy (ice pack, ice massage): Yes Thermo therapy (hot pack): Yes Thank you for the opportunity to evaluate your patient. For Medicare and Medicare HMO plans, please review the plan of care and approve it. It will need to be FAXED BACK to us at [phone] for Medicare purposes. For Medicare only, by signing this I certify the plan of care. Please let me know if there are questions or concerns regarding this plan of care. Physician Signature: Date:
--- NOTE | 2023-02-14 11:16 | HP.PTDCSUM ---
It has been my pleasure to treat NICOLE LONDONO referred by Dr. Leonarda Hare MD, with the diagnosis of Cervical Spond for a total of 7 visit(s). Discharge Date: Please see the following information for a summary of their discharge status. Subjective: Patient reports that he woke up this morning without pain on the left and just a little on the right. He is a lot more aware of his posture- he has been able to modify his work station. neck Pain Intensity (Out of 10): 3 % Improvement: 75 Objective/Function: Posture: good throughout session Gait: good arm swing and trunk rotation. Palpation: tender along sub occipitals on the right ROM: WFL in all planes without pain or discomfort. Strength: Scap: fair plus, Shoulder: 4+/5, Elbow: 5/5, Wrist: 5/5 Goal 1:: Patient will be I with HEP and progression Goal Progress: Goal Met Goal 2:: Patient will maintain proper posture t/o tx session to demo increased scap s/s Goal Progress: Goal Met Goal 3:: Patient will report 80% improvement Goal Progress: Progressing Plan: 02/14/23: Discharge to I HEP- gave blue band for HEP progression. Focus on postural correction, manual therapy to sub occipitals and cervical spine with US as mod of choice. HEP Given IE: postural education, workspace ergonomics, scap retraction, chin tucks, UT and levator stretch If there are questions or concerns regarding this patient's physical therapy, please feel free to call me at [phone]. Thank you for the referral of this patient. Sincerely, Lucy Urena, DPT Balance/Gait/Functional tests - Balance/Special Test Scores Oswestry Neck Score: 2
== END 2023-02-14 19:00 | disposition home or self-care (01) ==
LOC: PT 10:30
PROVIDERS: PCP Family Medicine; Referring Provider Family Medicine; Visit Provider Family Medicine
DX: M47.812 Spondylosis without myelopathy or radiculopathy, cervical region (principal)
CPT/HCPCS: 97035; 97110; 97140; 97162; 97164; 97530

== ENCOUNTER → 2023-03-03 | Outpatient (CLI) | payer BC, SELFPAY ==
[2023-03-03 17:49] LABS: Absolute Lymphocyte Count 1.91 X10^3/uL (0.83-4.51); Absolute Neutrophil Count 2.6 X10^3/uL (2.0-7.7); Basophil# 0.06 X10^3/uL; Basophil% 1.1 % (0-1); Eosinophil# 0.22 X10^3/uL; Eosinophils% 4.1 % (0-5); Hematocrit 38.4 % (40-54); Hemoglobin 12.6 g/dL (13.0-16.5); Lymphocyte # 1.91 X10^3/ul (0.83-4.51); Lymphocyte % 35.4 % (19-41); Mean Corp Hgb Conc 32.8 g/dL (32-36); Mean Corpuscular Hgb 31.7 pg (27.0-32.0); Mean Corpuscular Volume 96.7 fL (80-94); Mean Platelet Vol. 9.8 fl (6.2-12.0); Monocyte# 0.56 X10^3/uL; Monocyte% 10.4 % (0-10); NRBC Flagged by Analyzer 0 % (0-5); Neutrophil # 2.64 X10^3/uL (2.7-7.7); Neutrophil % 48.8 % (47-70); Platelet Count 314 K/mm3 (150-450); RBC Distribution Width CV 13.1 % (11.6-14.6); RBC Distribution Width SD 45.5 fl (35.1-43.9); Red Blood Count 3.97 M/mm3 (4.6-6.2); White Blood Count 5.4 K/mm3 (4.4-11.0)
[2023-03-03 18:25] LABS: ALB/GLOB Ratio 1.3 RATIO (0.9-2.4); AST(SGOT) 36 U/L (15-37); Alanine Aminotransfer ALT/SGPT 33 U/L (16-61); Alkaline Phosphatase 82 U/L (45-117); Anion Gap 4 (5-15); BUN 29 mg/dL (7-18); BUN/Creat Ratio 22.7 RATIO (10-20); Calcium,Total 9.3 mg/dL (8.5-10.1); Chloride 104 mmol/L (98-107); Creatinine, Serum 1.28 mg/dL (0.70-1.30); EST Glomerular Filtration Rate 61 mL/min (>60); Est Glom Filt Rate - Afr Amer 73 mL/min (>60); Glucose 96 mg/dL (74-106); Sodium Level 136 mmol/L (136-145)
== END | disposition home or self-care (01) ==
LOC: MTLAB 15:04
PROVIDERS: PCP Family Medicine; Referring Provider Internal Medicine Rheumatology; Visit Provider Internal Medicine Rheumatology
DX: L40.59 Other psoriatic arthropathy (principal); Z79.899 Other long term (current) drug therapy
CPT/HCPCS: 36415; 80053; 85025

== ENCOUNTER → 2023-05-30 | Outpatient (CLI) | payer BC, SELFPAY ==
[2023-05-30 12:36] LABS: Absolute Lymphocyte Count 1.34 X10^3/uL (0.83-4.51); Absolute Neutrophil Count 1.4 X10^3/uL (2.0-7.7); Basophil# 0.04 X10^3/uL; Basophil% 1.2 % (0-1); Eosinophil# 0.15 X10^3/uL; Eosinophils% 4.5 % (0-5); Hemoglobin 12.3 g/dL (13.0-16.5); Lymphocyte # 1.34 X10^3/ul (0.83-4.51); Lymphocyte % 40.6 % (19-41); Mean Corp Hgb Conc 33.2 g/dL (32-36); Mean Corpuscular Hgb 32.4 pg (27.0-32.0); Mean Corpuscular Volume 97.4 fL (80-94); Mean Platelet Vol. 9.5 fl (6.2-12.0); Monocyte# 0.36 X10^3/uL; Monocyte% 10.9 % (0-10); NRBC Flagged by Analyzer 0 % (0-5); Neutrophil % 42.5 % (47-70); Platelet Count 299 K/mm3 (150-450); RBC Distribution Width CV 12.9 % (11.6-14.6); RBC Distribution Width SD 45.3 fl (35.1-43.9); White Blood Count 3.3 K/mm3 (4.4-11.0)
[2023-05-30 12:57] LABS: ALB/GLOB Ratio 1.2 RATIO (0.9-2.4); AST(SGOT) 33 U/L (15-37); Alanine Aminotransfer ALT/SGPT 29 U/L (16-61); Albumin, Serum 3.7 g/dL (3.2-5.0); Alkaline Phosphatase 68 U/L (45-117); Anion Gap 4 (5-15); BUN 20 mg/dL (7-18); BUN/Creat Ratio 15.2 RATIO (10-20); Calcium,Total 9.1 mg/dL (8.5-10.1); Chloride 107 mmol/L (98-107); Creatinine, Serum 1.32 mg/dL (0.70-1.30); EST Glomerular Filtration Rate 58 mL/min (>60); Est Glom Filt Rate - Afr Amer 71 mL/min (>60); Globulin 3.2 g/dL (2.2-4.2); Glucose 91 mg/dL (74-106); Potassium 4.3 mmol/L (3.5-5.1); Protein, Total 6.9 g/dL (6.4-8.2); Sodium Level 139 mmol/L (136-145)
== END | disposition home or self-care (01) ==
LOC: MTLAB 10:49
PROVIDERS: PCP Family Medicine; Referring Provider Internal Medicine Rheumatology; Visit Provider Internal Medicine Rheumatology
DX: L40.59 Other psoriatic arthropathy (principal); Z79.899 Other long term (current) drug therapy
CPT/HCPCS: 36415; 80053; 85025

== ENCOUNTER 2023-08-11 05:03 | Emergency (ER) | payer BC, SELFPAY ==
[2023-08-11 05:04] VITALS: BP 130/77; PULSE 83; RESP 16; TEMP 37.1; O2SAT 98; BMI 27.1
--- NOTE | 2023-08-11 05:11 | EX.ED.DYSGE1 ---
HPI History of Present Illness Chief Complaint: Nausea/Vomiting Narrative Narrative: Patient presents with positive COVID now nausea and vomiting. He started to get a mild dry cough on Tuesday but felt fine. Later in the evening Tuesday he got some myalgias. Subjective fevers. He has developed nausea. He was started on Paxlovid Tuesday at about 1 PM. About 6 PM he started with nausea. He then has been vomiting several times. No blood. No diarrhea. No real abdominal pain but he does get some cramping before vomiting all in the epigastric area. He has nothing at home for [facility] Medical History Anxiety and depression Asthma IBS (irritable bowel syndrome) thumb joint removal trigger finger release Home Medications albuterol sulfate 90 mcg/actuation aerosol inhaler (ProAir HFA) 2 puff inhalation Q6H PRN 09/11/20 [History Last Taken Unknown] budesonide-formoterol HFA 160 mcg-4.5 mcg/actuation aerosol inhaler (Symbicort) 2 puff inhalation BID 09/11/20 [History Last Taken Unknown] cetirizine 10 mg tablet (Allergy Relief (cetirizine)) 10 mg PO DAILY 09/11/20 [History Last Taken Unknown] gemfibrozil 600 mg tablet 600 mg PO BID 09/11/20 [History Last Taken Unknown] guaifenesin 400 mg tablet 400 mg PO Q4H 09/11/20 [History Last Taken Unknown] loperamide 2 mg tablet 2 mg PO Q6H PRN 09/11/20 [History Last Taken Unknown] multivitamin with minerals (Men's One Daily tablet) 1 tab PO DAILY 09/11/20 [History Last Taken Unknown] vilazodone 40 mg tablet (Viibryd) 40 mg PO DAILY 09/11/20 [History Last Taken Unknown] diclofenac sodium 1 % topical gel 2 g topical ONCE 06/03/21 [History Last Taken Unknown] folic acid 1 mg tablet 2 mg PO DAILY 06/03/21 [History Last Taken Unknown] methotrexate sodium 2.5 mg tablet 12.5 mg PO QWEEK 06/03/21 [History Last Taken Unknown] prednisone 10 mg tablet 10 mg PO DAILY PRN 06/03/21 [History Last Taken Unknown] ondansetron 4 mg disintegrating tablet 4 mg PO Q8H PRN PRN Nausea #10 tabs 08/11/23 [Rx Last Taken Unknown] Allergy/AdvReac Type Severity Reaction Status Date / Time cat dander Allergy Severe Anaphylaxis Verified 06/03/21 13:45 bupropion [From Wellbutrin] Allergy Intermediate Rash Verified 06/03/21 13:45 Family History Mother Myasthenia gravis Hypertension Father Arthritis Hyperlipidemia Parkinsons disease Surgical History H/O: vasectomy Social History household members: spouse and children Smoking Status: Never smoker alcohol intake: current alcohol intake frequency: holidays/special occasions only what type of physical activity do you participate in: walking frequency: 5-6 times per week do you feel safe at home: Yes ROS ROS ED ROS Narrative A complete review of systems was performed and is negative except as documented in the history of present illness. Some specific details below. Constitutional: No recent fevers but he has felt chilled at times. Myalgias. EYE: No visual complaints or pain. ENT: No difficulty swallowing. No swelling. No pain. CV: No chest pain or palpitations. Respiratory: No dyspnea. No hemoptysis. No difficulty taking breaths. Occasional dry cough but overall very few pulmonary symptoms. GI: Please see history of present illness. No vomiting. Cramping before vomiting but no real pain. No diarrhea noted. : No frequency dysuria or hematuria. Musculoskeletal: No recent trauma. No pains. Skin: No rash. Nondiaphoretic. Neuro: No weakness or numbness. Endocrine: No polyuria or polydipsia. EXAM Physical Exam Narrative Exam Narrative: CONSTITUTIONAL: Patient is nontoxic in appearance. The patient looks comfortable. HEENT: No notable trauma. Mucous membranes are dry. EYES: No conjunctival injection. No proptosis. Icterus. CARDIOVASCULAR: Regular rate. Regular rhythm. No notable murmur. No JVD. RESPIRATORY: No respiratory distress. Breathing is unlabored. No wheezes bite his history of asthma. No rhonchi. No rales. No pain with a deep breath. GASTROINTESTINAL: Not distended. Bowel sounds are normal. No tenderness. No guarding. No rebound. No palpable mass. No bruit. Overall benign abdomen. GENITOURINARY: No tenderness over the bladder. No CVA tenderness. MUSCULOSKELETAL: Atraumatic. No peripheral edema. No cord. No tenderness along the deep venous system. No asymmetry. NEUROLOGICAL: Patient is alert and appropriate. No focal deficit noted. SKIN: No noted rashes. No diaphoresis. PSYCHIATRIC: Patient is calm. Mood is appropriate. Const Vital Signs: 08/11/23 05:04 Temperature 98.7 F Temperature Source Oral Pulse Rate 83 Respiratory Rate 16 Blood Pressure 130/77 H Blood Pressure Mean 94 Pulse Ox 98 Oxygen Delivery Method Room Air MDM MDM MDM Narrative Medical decision making narrative: CBC shows minimal anemia at 12.3. Platelets white count are normal. Patient's electrolytes show no marked abnormalities. Minimal elevation of the BUN to creatinine ratio but he was given IV fluids. Glucose is up just slightly at 132. I rechecked the patient. He states he feels a lot better. His nausea is gone. He would like to go home. We will get him Zofran to go. We explained expected course and reasons to return. Lab Data Attestation: I reviewed the patient's lab results. Labs: Laboratory Results - last 24 hr 08/11/23 05:40 WBC 4.7 RBC 3.83 L Hgb 12.3 L Hct 36.9 L MCV 96.3 H MCH 32.1 H MCHC 33.3 RDW Std Deviation 43.4 RDW Coeff of Alejandro 12.7 Plt Count 285 MPV 9.3 Immature Gran % (Auto) 0.400 Neut % (Auto) 76.8 H Lymph % (Auto) 13.1 L Gaines % (Auto) 9.3 Eos % (Auto) 0.0 Baso % (Auto) 0.4 Absolute Neuts (auto) 3.6 Absolute Lymphs (auto) 0.62 L Nucleated RBC % 0 Sodium 134 L Potassium 3.8 Chloride 101 Carbon Dioxide 26.0 Anion Gap 7 BUN 22 H Creatinine 1.09 Estim Creat Clear Calc 63.41 Est GFR (MDRD) Af Amer 88 Est GFR (MDRD) Non-Af 73 BUN/Creatinine Ratio 20.2 H Glucose 132 H Calcium 8.4 L Discharge Plan Triage Chief Complaint: Nausea/Vomiting ED Provider: Torrey Hector Dx/Rx/DC Orders Clinical Impression: COVID-19, Nausea & vomiting Instructions: Coronavirus Disease 2019 (COVID-19): Caring for Yourself or Others, ED Vomiting (Adult) Prescriptions: New ondansetron [ondansetron] 4 mg tablet,disintegrating 4 mg PO Q8H PRN PRN (Reason: Nausea) Qty: 10 0RF No Action Viibryd 40 mg tablet 40 mg PO DAILY Rx Instructions: must administer with a meal/food gemfibrozil 600 mg tablet 600 mg PO BID budesonide-formoterol [Symbicort] 160-4.5 mcg/actuation HFA aerosol inhaler 2 puff INHALATION BID albuterol sulfate [ProAir HFA] 90 mcg/actuation HFA aerosol inhaler 2 puff INHALATION Q6H PRN multivitamin with minerals [Men's One Daily] Tablet 1 tab PO DAILY guaifenesin 400 mg tablet 400 mg PO Q4H loperamide 2 mg tablet 2 mg PO Q6H PRN cetirizine [Allergy Relief (cetirizine)] 10 mg tablet 10 mg PO DAILY diclofenac sodium 1 % gel 2 g topical ONCE Patient Comments: APPLY TO AFFECTED AREA 1 TO 2 TIMES DAILY prednisone 10 mg tablet 10 mg PO DAILY PRN folic acid 1 mg tablet 2 mg PO DAILY methotrexate sodium 2.5 mg tablet 12.5 mg PO QWEEK Primary Care Provider: Leonarda Hare Referrals: Leonarda Hare MD [Primary Care Provider] - 1-2 Days if not improving Disposition Disposition: Home, Self Care
[2023-08-11] MEDS: Ondansetron 4 MG/2 ML Vial IV (05:40)
[2023-08-11] MEDS: 0.9% Normal Saline (1000mL) 1,000 ML 1000 ML IV (05:41)
[2023-08-11 05:51] LABS: Absolute Lymphocyte Count 0.62 X10^3/uL (0.83-4.51); Absolute Neutrophil Count 3.6 X10^3/uL (2.0-7.7); Basophil# 0.02 X10^3/uL; Basophil% 0.4 % (0-1); Hematocrit 36.9 % (40-54); Hemoglobin 12.3 g/dL (13.0-16.5); Lymphocyte # 0.62 X10^3/ul (0.83-4.51); Lymphocyte % 13.1 % (19-41); Mean Corp Hgb Conc 33.3 g/dL (32-36); Mean Corpuscular Hgb 32.1 pg (27.0-32.0); Mean Corpuscular Volume 96.3 fL (80-94); Mean Platelet Vol. 9.3 fl (6.2-12.0); Monocyte# 0.44 X10^3/uL; Monocyte% 9.3 % (0-10); NRBC Flagged by Analyzer 0 % (0-5); Neutrophil # 3.62 X10^3/uL (2.7-7.7); Neutrophil % 76.8 % (47-70); Platelet Count 285 K/mm3 (150-450); RBC Distribution Width CV 12.7 % (11.6-14.6); RBC Distribution Width SD 43.4 fl (35.1-43.9); Red Blood Count 3.83 M/mm3 (4.6-6.2); White Blood Count 4.7 K/mm3 (4.4-11.0)
[2023-08-11 06:04] LABS: Anion Gap 7 (5-15); BUN 22 mg/dL (7-18); BUN/Creat Ratio 20.2 RATIO (10-20); Calcium,Total 8.4 mg/dL (8.5-10.1); Chloride 101 mmol/L (98-107); Creatinine, Serum 1.09 mg/dL (0.70-1.30); EST Glomerular Filtration Rate 73 mL/min (>60); Est Glom Filt Rate - Afr Amer 88 mL/min (>60); Estimated Creatinine Clearance 63.41 ml/min; Glucose 132 mg/dL (74-106); Potassium 3.8 mmol/L (3.5-5.1); Sodium Level 134 mmol/L (136-145)
[2023-08-11 07:15] VITALS: BP 136/77; PULSE 83; RESP 16; O2SAT 98
== END 2023-08-11 07:16 | disposition home or self-care (01) ==
PROVIDERS: Emergency Provider Emergency Medicine; PCP Family Medicine; Visit Provider Emergency Medicine
DX: U07.1 COVID-19 (principal); R11.2 Nausea with vomiting, unspecified; J45.909 Unspecified asthma, uncomplicated; F41.9 Anxiety disorder, unspecified; F32.9 Major depressive disorder, single episode, unspecified
CPT/HCPCS: 80048; 85025; 96361; 96374; 99284; J7030; A4216; J2405

== ENCOUNTER → 2023-08-31 | Outpatient (CLI) | payer BC, SELFPAY ==
[2023-08-31 18:00] LABS: Absolute Lymphocyte Count 1.91 X10^3/uL (0.83-4.51); Basophil# 0.05 X10^3/uL; Basophil% 0.9 % (0-1); Eosinophil# 0.19 X10^3/uL; Eosinophils% 3.5 % (0-5); Hematocrit 38.2 % (40-54); Hemoglobin 12.4 g/dL (13.0-16.5); Lymphocyte # 1.91 X10^3/ul (0.83-4.51); Lymphocyte % 34.9 % (19-41); Mean Corp Hgb Conc 32.5 g/dL (32-36); Mean Corpuscular Hgb 31.6 pg (27.0-32.0); Mean Corpuscular Volume 97.2 fL (80-94); Mean Platelet Vol. 10.3 fl (6.2-12.0); Monocyte# 0.34 X10^3/uL; Monocyte% 6.2 % (0-10); NRBC Flagged by Analyzer 0 % (0-5); Neutrophil # 2.97 X10^3/uL (2.7-7.7); Neutrophil % 54.3 % (47-70); Platelet Count 335 K/mm3 (150-450); RBC Distribution Width CV 12.2 % (11.6-14.6); Red Blood Count 3.93 M/mm3 (4.6-6.2); White Blood Count 5.5 K/mm3 (4.4-11.0)
[2023-08-31 18:32] LABS: ALB/GLOB Ratio 1.1 RATIO (0.9-2.4); AST(SGOT) 33 U/L (15-37); Alanine Aminotransfer ALT/SGPT 32 U/L (16-61); Albumin, Serum 3.7 g/dL (3.2-5.0); Alkaline Phosphatase 73 U/L (45-117); Anion Gap 7 (5-15); BUN 19 mg/dL (7-18); BUN/Creat Ratio 14.4 RATIO (10-20); Calcium,Total 9.3 mg/dL (8.5-10.1); Chloride 105 mmol/L (98-107); Creatinine, Serum 1.32 mg/dL (0.70-1.30); EST Glomerular Filtration Rate 58 mL/min (>60); Est Glom Filt Rate - Afr Amer 71 mL/min (>60); Globulin 3.4 g/dL (2.2-4.2); Glucose 116 mg/dL (74-106); Potassium 3.7 mmol/L (3.5-5.1); Protein, Total 7.1 g/dL (6.4-8.2); Sodium Level 140 mmol/L (136-145)
== END | disposition home or self-care (01) ==
PROVIDERS: PCP Family Medicine; Referring Provider Internal Medicine Rheumatology; Visit Provider Internal Medicine Rheumatology
DX: L40.59 Other psoriatic arthropathy (principal); Z79.899 Other long term (current) drug therapy; L40.8 Other psoriasis; M19.041 Primary osteoarthritis, right hand; K76.0 Fatty (change of) liver, not elsewhere classified
CPT/HCPCS: 36415; 80053; 85025

== ENCOUNTER → 2023-11-28 | Outpatient (CLI) | payer BC, SELFPAY ==
--- OUTSIDE RECORDS SUMMARY | 2023-11-28 14:50 | XMS RPT_ITS | CCD ---
Author Name Unknown Address [address] [place] [address] Organization [facility] Results Test Name Value Interpretation Reference Range Facil ity Summary Purpose Family History No Family History Records Found Advance Directives No Advanced Directives Records Found Additional Source Comments (unrecognized sect ion and content) No Status Records Found INFORMATION SOURCE (unrecogn ized section and content) FOR RECORDS PERTAINING TO PATIENTS WHO ARE OR HAVE BEEN ENROLLED IN A CHEMICAL DEPENDENCY/SUBSTANCEABUSE PROGRAM, SOME INFORMATION MAY BE OMITTED. This clinical summary was aggregated from multiple sources. Caution should be exercised in using it in the provision of clinical care. This summary normalizes information from multiple sources, and as a consequence, information in this document may materially change the coding, format and clinical context of patient data. In addition, data may be omitted in some cases. CLINICAL DECISIONS SHOULD BE BASED ON THE PRIMARY CLINICAL RECORDS. [employer] provides no warranty or guarantee of the accuracy or completeness of information in this document.
[2023-11-28 15:36] LABS: Absolute Lymphocyte Count 1.62 X10^3/uL (0.83-4.51); Absolute Neutrophil Count 3.5 X10^3/uL (2.0-7.7); Basophil# 0.03 X10^3/uL; Basophil% 0.5 % (0-1); Eosinophil# 0.12 X10^3/uL; Eosinophils% 2.1 % (0-5); Hematocrit 38.9 % (40-54); Hemoglobin 12.7 g/dL (13.0-16.5); Lymphocyte # 1.62 X10^3/ul (0.83-4.51); Lymphocyte % 28.9 % (19-41); Mean Corp Hgb Conc 32.6 g/dL (32-36); Mean Corpuscular Hgb 31.4 pg (27.0-32.0); Monocyte# 0.34 X10^3/uL; Monocyte% 6.1 % (0-10); NRBC Flagged by Analyzer 0 % (0-5); Neutrophil # 3.47 X10^3/uL (2.7-7.7); Platelet Count 273 K/mm3 (150-450); RBC Distribution Width CV 13.2 % (11.6-14.6); RBC Distribution Width SD 46.1 fl (35.1-43.9); Red Blood Count 4.05 M/mm3 (4.6-6.2); White Blood Count 5.6 K/mm3 (4.4-11.0)
[2023-11-28 16:02] LABS: ALB/GLOB Ratio 1.2 RATIO (0.9-2.4); AST(SGOT) 38 U/L (15-37); Alanine Aminotransfer ALT/SGPT 35 U/L (16-61); Albumin, Serum 3.6 g/dL (3.2-5.0); Alkaline Phosphatase 62 U/L (45-117); Anion Gap 5 (5-15); BUN 23 mg/dL (7-18); BUN/Creat Ratio 18.7 RATIO (10-20); Calcium,Total 9.2 mg/dL (8.5-10.1); Chloride 107 mmol/L (98-107); Creatinine, Serum 1.23 mg/dL (0.70-1.30); EST Glomerular Filtration Rate 63 mL/min (>60); Est Glom Filt Rate - Afr Amer 77 mL/min (>60); Glucose 130 mg/dL (74-106); Potassium 4.3 mmol/L (3.5-5.1); Protein, Total 6.6 g/dL (6.4-8.2); Sodium Level 140 mmol/L (136-145)
== END | disposition home or self-care (01) ==
PROVIDERS: PCP Family Medicine; Referring Provider Internal Medicine Rheumatology; Visit Provider Internal Medicine Rheumatology
DX: L40.59 Other psoriatic arthropathy (principal); Z79.899 Other long term (current) drug therapy; L40.8 Other psoriasis; K76.0 Fatty (change of) liver, not elsewhere classified
CPT/HCPCS: 36415; 80053; 85025

== ENCOUNTER → 2024-02-20 | Outpatient (CLI) | payer BC, SELFPAY ==
[2024-02-20 12:22] LABS: Absolute Lymphocyte Count 1.61 X10^3/uL (0.83-4.51); Absolute Neutrophil Count 2.3 X10^3/uL (2.0-7.7); Basophil# 0.04 X10^3/uL; Basophil% 0.9 % (0-1); Eosinophil# 0.13 X10^3/uL; Eosinophils% 2.9 % (0-5); Hematocrit 40.3 % (40-54); Hemoglobin 13.4 g/dL (13.0-16.5); Lymphocyte # 1.61 X10^3/ul (0.83-4.51); Lymphocyte % 35.4 % (19-41); Mean Corp Hgb Conc 33.3 g/dL (32-36); Mean Corpuscular Volume 96.2 fL (80-94); Mean Platelet Vol. 9.5 fl (6.2-12.0); Monocyte# 0.44 X10^3/uL; Monocyte% 9.7 % (0-10); NRBC Flagged by Analyzer 0 % (0-5); Neutrophil # 2.32 X10^3/uL (2.7-7.7); Neutrophil % 50.9 % (47-70); Platelet Count 297 K/mm3 (150-450); RBC Distribution Width CV 12.8 % (11.6-14.6); RBC Distribution Width SD 44.6 fl (35.1-43.9); Red Blood Count 4.19 M/mm3 (4.6-6.2); White Blood Count 4.6 K/mm3 (4.4-11.0)
[2024-02-20 12:47] LABS: ALB/GLOB Ratio 1.3 RATIO (0.9-2.4); AST(SGOT) 40 U/L (15-37); Alanine Aminotransfer ALT/SGPT 34 U/L (16-61); Albumin, Serum 3.9 g/dL (3.2-5.0); Alkaline Phosphatase 54 U/L (45-117); Anion Gap 7 (5-15); BUN 20 mg/dL (7-18); Calcium,Total 9.2 mg/dL (8.5-10.1); Chloride 102 mmol/L (98-107); Creatinine, Serum 1.25 mg/dL (0.70-1.30); EST Glomerular Filtration Rate 62 mL/min (>60); Est Glom Filt Rate - Afr Amer 75 mL/min (>60); Glucose 93 mg/dL (74-106); Potassium 4.1 mmol/L (3.5-5.1); Protein, Total 6.9 g/dL (6.4-8.2); Sodium Level 137 mmol/L (136-145)
== END | disposition home or self-care (01) ==
PROVIDERS: PCP Family Medicine; Referring Provider Internal Medicine Rheumatology; Visit Provider Internal Medicine Rheumatology
DX: L40.59 Other psoriatic arthropathy (principal); Z79.899 Other long term (current) drug therapy; L40.8 Other psoriasis; M19.041 Primary osteoarthritis, right hand
CPT/HCPCS: 36415; 80053; 85025

== ENCOUNTER → 2024-06-08 | Outpatient (CLI) | payer BC, SELFPAY ==
[2024-06-08 15:16] LABS: Absolute Lymphocyte Count 1.66 X10^3/uL (0.83-4.51); Absolute Neutrophil Count 3.4 X10^3/uL (2.0-7.7); Basophil# 0.05 X10^3/uL; Basophil% 0.8 % (0-1); Eosinophil# 0.16 X10^3/uL; Eosinophils% 2.6 % (0-5); Hematocrit 39.6 % (40-54); Hemoglobin 13.1 g/dL (13.0-16.5); Lymphocyte # 1.66 X10^3/ul (0.83-4.51); Lymphocyte % 27.5 % (19-41); Mean Corp Hgb Conc 33.1 g/dL (32-36); Mean Corpuscular Hgb 32.1 pg (27.0-32.0); Mean Corpuscular Volume 97.1 fL (80-94); Mean Platelet Vol. 9.7 fl (6.2-12.0); Monocyte% 11.6 % (0-10); NRBC Flagged by Analyzer 0 % (0-5); Neutrophil # 3.43 X10^3/uL (2.7-7.7); Neutrophil % 56.8 % (47-70); Platelet Count 301 K/mm3 (150-450); RBC Distribution Width SD 45.8 fl (35.1-43.9); Red Blood Count 4.08 M/mm3 (4.6-6.2)
[2024-06-08 15:51] LABS: ALB/GLOB Ratio 1.3 RATIO (0.9-2.4); AST(SGOT) 38 U/L (15-37); Alanine Aminotransfer ALT/SGPT 34 U/L (16-61); Albumin, Serum 3.8 g/dL (3.2-5.0); Alkaline Phosphatase 57 U/L (45-117); Anion Gap 6 (5-15); BUN 23 mg/dL (7-18); BUN/Creat Ratio 19.3 RATIO (10-20); Calcium,Total 9.6 mg/dL (8.5-10.1); Chloride 103 mmol/L (98-107); Creatinine, Serum 1.19 mg/dL (0.70-1.30); EST Glomerular Filtration Rate 66 mL/min (>60); Est Glom Filt Rate - Afr Amer 79 mL/min (>60); Glucose 97 mg/dL (74-106); Potassium 3.8 mmol/L (3.5-5.1); Protein, Total 6.8 g/dL (6.4-8.2); Sodium Level 139 mmol/L (136-145)
== END | disposition home or self-care (01) ==
LOC: MTLAB 11:35
PROVIDERS: PCP Family Medicine; Referring Provider Internal Medicine Rheumatology; Visit Provider Internal Medicine Rheumatology
DX: L40.59 Other psoriatic arthropathy (principal); Z79.899 Other long term (current) drug therapy; L40.8 Other psoriasis; M19.041 Primary osteoarthritis, right hand
CPT/HCPCS: 36415; 80053; 85025

== ENCOUNTER → 2024-06-29 | Outpatient (CLI) | payer BC, SELFPAY ==
[2024-06-29 10:20] LABS: Cholesterol 195 mg/dL (200); High Density Lipoprotein 44 mg/dL; Triglycerides 225 mg/dL; Very Low Density Lipoprotein 45 mg/dL (5-40)
== END | disposition home or self-care (01) ==
LOC: MTLAB 07:20
PROVIDERS: PCP Family Medicine; Referring Provider Family Medicine; Visit Provider Family Medicine
DX: E78.5 Hyperlipidemia, unspecified (principal)
CPT/HCPCS: 36415; 80061

== ENCOUNTER → 2024-09-05 | Outpatient (CLI) | payer BC, SELFPAY ==
[2024-09-05 15:19] LABS: Absolute Lymphocyte Count 1.79 X10^3/uL (0.83-4.51); Absolute Neutrophil Count 4.3 X10^3/uL (2.0-7.7); Basophil# 0.06 X10^3/uL; Basophil% 0.9 % (0-1); Eosinophil# 0.13 X10^3/uL; Eosinophils% 1.9 % (0-5); Hematocrit 39.2 % (40-54); Hemoglobin 13.1 g/dL (13.0-16.5); Lymphocyte # 1.79 X10^3/ul (0.83-4.51); Lymphocyte % 26.4 % (19-41); Mean Corp Hgb Conc 33.4 g/dL (32-36); Mean Corpuscular Hgb 32.1 pg (27.0-32.0); Mean Corpuscular Volume 96.1 fL (80-94); Mean Platelet Vol. 10.1 fl (6.2-12.0); Monocyte# 0.48 X10^3/uL; Monocyte% 7.1 % (0-10); NRBC Flagged by Analyzer 0 % (0-5); Neutrophil # 4.27 X10^3/uL (2.7-7.7); Neutrophil % 63.1 % (47-70); Platelet Count 309 K/mm3 (150-450); RBC Distribution Width CV 12.6 % (11.6-14.6); RBC Distribution Width SD 43.8 fl (35.1-43.9); Red Blood Count 4.08 M/mm3 (4.6-6.2); White Blood Count 6.8 K/mm3 (4.4-11.0)
[2024-09-05 15:38] LABS: ALB/GLOB Ratio 1.2 RATIO (0.9-2.4); AST(SGOT) 39 U/L (15-37); Alanine Aminotransfer ALT/SGPT 34 U/L (16-61); Albumin, Serum 3.8 g/dL (3.2-5.0); Alkaline Phosphatase 67 U/L (45-117); Anion Gap 4 (5-15); BUN 18 mg/dL (7-18); BUN/Creat Ratio 15.4 RATIO (10-20); Calcium,Total 9.4 mg/dL (8.5-10.1); Chloride 102 mmol/L (98-107); Creatinine, Serum 1.17 mg/dL (0.70-1.30); EST Glomerular Filtration Rate 67 mL/min (>60); Est Glom Filt Rate - Afr Amer 81 mL/min (>60); Globulin 3.1 g/dL (2.2-4.2); Glucose 95 mg/dL (74-106); Potassium 4.2 mmol/L (3.5-5.1); Protein, Total 6.9 g/dL (6.4-8.2); Sodium Level 136 mmol/L (136-145)
== END | disposition home or self-care (01) ==
LOC: MTLAB 11:06
PROVIDERS: PCP Family Medicine; Referring Provider Internal Medicine Rheumatology; Visit Provider Internal Medicine Rheumatology
DX: L40.59 Other psoriatic arthropathy (principal); Z79.899 Other long term (current) drug therapy; L40.8 Other psoriasis; K76.0 Fatty (change of) liver, not elsewhere classified
CPT/HCPCS: 36415; 80053; 85025

== ENCOUNTER → 2024-11-26 | Outpatient (CLI) | payer BC, SELFPAY ==
[2024-11-26 17:57] LABS: Absolute Lymphocyte Count 1.79 X10^3/uL (0.83-4.51); Absolute Neutrophil Count 3.2 X10^3/uL (2.0-7.7); Basophil# 0.04 X10^3/uL; Basophil% 0.7 % (0-1); Eosinophil# 0.09 X10^3/uL; Eosinophils% 1.6 % (0-5); Hemoglobin 13.3 g/dL (13.0-16.5); Lymphocyte # 1.79 X10^3/ul (0.83-4.51); Lymphocyte % 32.3 % (19-41); Mean Corp Hgb Conc 32.4 g/dL (32-36); Mean Corpuscular Volume 95.6 fL (80-94); Mean Platelet Vol. 9.2 fl (6.2-12.0); Monocyte# 0.39 X10^3/uL; NRBC Flagged by Analyzer 0 % (0-5); Neutrophil # 3.22 X10^3/uL (2.7-7.7); Neutrophil % 58.2 % (47-70); Platelet Count 307 K/mm3 (150-450); RBC Distribution Width CV 12.7 % (11.6-14.6); RBC Distribution Width SD 43.8 fl (35.1-43.9); Red Blood Count 4.29 M/mm3 (4.6-6.2); White Blood Count 5.5 K/mm3 (4.4-11.0)
[2024-11-26 18:53] LABS: ALB/GLOB Ratio 1.3 RATIO (0.9-2.4); AST(SGOT) 41 U/L (15-37); Alanine Aminotransfer ALT/SGPT 39 U/L (16-61); Albumin, Serum 3.8 g/dL (3.2-5.0); Alkaline Phosphatase 67 U/L (45-117); Anion Gap 3 (5-15); BUN 20 mg/dL (7-18); BUN/Creat Ratio 15.5 RATIO (10-20); Calcium,Total 9.5 mg/dL (8.5-10.1); Chloride 102 mmol/L (98-107); Creatinine, Serum 1.29 mg/dL (0.70-1.30); EST Glomerular Filtration Rate 60 mL/min (>60); Est Glom Filt Rate - Afr Amer 72 mL/min (>60); Glucose 121 mg/dL (74-106); Potassium 4.1 mmol/L (3.5-5.1); Protein, Total 6.8 g/dL (6.4-8.2); Sodium Level 137 mmol/L (136-145)
== END | disposition home or self-care (01) ==
LOC: MTLAB 14:03
PROVIDERS: PCP Family Medicine; Referring Provider Internal Medicine Rheumatology; Visit Provider Internal Medicine Rheumatology
DX: L40.59 Other psoriatic arthropathy (principal); Z79.899 Other long term (current) drug therapy
CPT/HCPCS: 36415; 80053; 85025

== ENCOUNTER 2025-01-21 10:26 | Day surgery (SDC) | payer BC, SELFPAY ==
[2025-01-21] VITALS (9 sets, daily range): BP systolic 82–153; BP diastolic 62–88; PULSE 75–98; RESP 12–18; TEMP 36.2–36.5; O2SAT 95–99; BMI 27.4
--- NOTE | 2025-01-21 10:46 | EKG12_ITS ---
Test Reason : PRE-OP Blood Pressure : */* mmHG Vent. Rate : 91 BPM Atrial Rate : 91 BPM P-R Int : 176 ms QRS Dur : 86 ms QT Int : 350 ms P-R-T Axes : 11 31 33 degrees QTcB Int : 430 ms Normal sinus rhythm Normal ECG No previous ECGs available Confirmed by Kanu Tom ([id number]), manager editorial JEANNIE GRANADOS ([id number]) on 01/23/2025 7:36:43 AM Referred By: Jim Choi Confirmed By: Kanu Tom
--- NOTE | 2025-01-21 11:06 | PCM.PRE.AN2 ---
ASA Classification* ASA Classification ASA Classification: 2 Assessment & Plan Anesthesia* Anesthesia Assessment Anesthesia Assessment: Discussed sedation and/or anesthesia options, risks, benefits, and alternatives with patient/parents/legal guardian/POA. Questions invited. The patient/parents/legal guardian/POA seems to understand and agrees to proceed with anesthesia plan. Reviewed the physical assessment, medical history, allergy history and patient home medications list prior to surgery/procedure/anesthetic and documented any changes. Performed airway and anesthesia risk assessments. Anesthesia Type Anesthesia Type: Spinal (has mild asthma, popliteal block after surgery) and Block Anesthesia Focused Assessment* Temperature: 97.4 F Pulse Rate: 98 Blood Pressure: 118/86 Respiratory Rate: 12 Pulse Ox: 98 Airway Assessment Mouth opens: >3 cm Mallampati Score: II Focused Labs Anesthesia Preop lab: CBC WBC 5.5 K/mm3 (4.4-11.0) 11/26/24 14:11/26/24 RBC 4.29 M/mm3 (4.6-6.2) L 11/26/24 14:11/26/24 Hgb 13.3 g/dL (13.0-16.5) 11/26/24 14:11/26/24 Hct 41.0 % (40-54) 11/26/24 14:11/26/24 Plt Count 307 K/mm3 (150-450) 11/26/24 14:11/26/24 CHEMISTRY Potassium 4.1 mmol/L (3.5-5.1) 11/26/24 14:11/26/24 Sodium 137 mmol/L (136-145) 11/26/24 14:11/26/24 BUN 20 mg/dL (7-18) H 11/26/24 14:11/26/24 Creatinine 1.29 mg/dL (0.70-1.30) 11/26/24 14:11/26/24 Glucose 121 mg/dL (74-106) H 11/26/24 14:11/26/24 COAG Pre-Assessment Diagnosis/Proposed Procedure Planned Operative Procedure(s): (L) Left ankle open reduction internal fixation, syndesmosis repair, ankle arthroscopy, possible repair deltoid ligament Anesthesia History Anesthesia History - cath lab radiological technologist: Anesthesia History - cath lab radiological technologist Hx Hospitalization No 01/17/25 15:24 Any Problems With Anesthesia No 01/17/25 15:24 Cholinesterase deficiency No 01/17/25 15:24 You/Your Family Experience No 01/17/25 15:24 fever (hyperthermia) with Relationship Recent Exposure to Contagious No 01/21/25 11:00 Disease Does patient have nerve No 01/17/25 15:24 stimulator Patient instructed to have device shut off --Does patient have Pacemaker No 01/21/25 11:03 or ICD? When Was Last Pacemaker Check QUESTION #4 FULL TEXT: You/Your Family Experience fever (hyperthermia) with Anesthesia Last Oral Intake Last Oral intake: Last Oral Intake NPO since 21:30 01/21/25 11:03 Meds taken in AM with sips of No 01/21/25 11:03 water? Meds patient instructed to take am of surgery PONV PONV - cath lab radiological technologist: PONV - cath lab radiological technologist Female No 01/17/25 15:24 HX of Motion Sickness Yes 01/17/25 15:24 HX of N/V After Surgery No 01/17/25 15:24 Non-Smoker Yes 01/17/25 15:24 Duration of Surgery greater Yes 01/17/25 15:24 than 60 minutes Number of Risk Factors 3 01/17/25 15:24 PONV Score Moderate Risk 01/17/25 15:24 Height & Weight Height & Weight: Anesthesia: Height & Weight Height 5 ft 6 in 01/21/25 11:03 Weight: 77.111 kg 01/21/25 11:03 Body Mass Index (BMI) 27.4 01/21/25 11:03 Respiratory Assessment Respiratory Assessment - cath lab radiological technologist: Respiratory Tract Infection Hx - cath lab radiological technologist Hx Respiratory Tract Infection No 01/17/25 15:24 STOP Sleep Apnea STOP Sleep Apnea - cath lab radiological technologist: STOP Sleep Apnea - cath lab radiological technologist Hx Hypertension No 01/17/25 15:24 Hx Sleep Apnea No 01/17/25 15:24 CPAP BIPAP Do you snore loudly (louder No 01/17/25 15:24 than talking or can be heard Do you often feel tired/ No 01/17/25 15:24 fatigued/ sleepy during daytime? Has anyone observed you stop No 01/17/25 15:24 breathing during sleep? STOP Results Negative 01/17/25 15:24 QUESTION #5 FULL TEXT : Do you snore loudly (louder than talking or can be heard through closed doors)? Tobacco Use History Tobacco Use History - cath lab radiological technologist: Tobacco Use History - cath lab radiological technologist Tobacco Use Smoking Status Never smoker 01/17/25 15:24 Hx Tobacco Use No 01/17/25 15:24 Years Smoking Packs Smoked per Day Smoking Cessation Date was within the last 15 years Hx Smoking Cessation Date Hx Smoking Cessation Counseling Hematologic Medial History Hematologic Hx - cath lab radiological technologist: Hematologic Medical Hx - [employer] representative Hx of Blood Transfusion No 01/17/25 15:24 Hx of Transfusion in last 3 No 01/17/25 15:24 Months Date of Last Transfusion (if within last 3 months) Ever experience any problems No 01/17/25 15:24 with transfusion(s)? Specify any problems Hx of Preganancy in last 3 N/A 01/17/25 15:24 Months Nurse Filling Out Transfusion NBUCHER 01/17/25 15:24 & Questions: Date: 01/17/25 01/17/25 15:24 Time: 15:01/17/25 15:24 Patient unable to answer at this time (ie. confused, unrespo /Reproduction History /Reproductive History - cath lab radiological technologist: /Reproductive Hx- cath lab radiological technologist Hx Now No 01/17/25 15:24 Gestational Age (in weeks): EDC: Hx Hx Para Hx Section SAB No 01/17/25 15:24 Active Medications Active Medications: Current Medications Generic Name Dose Route Start Last Admin Trade Name Freq PRN Reason Stop Dose Admin Cefazolin Sodium 2 gm/ N/A 20 mls @ 400 mls/hr 01/21/25 12:05 IV 01/21/25 12:07 PREOP ONE Sodium Chloride 1,000 mls @ 15 mls/hr 01/21/25 10:45 IV 01/27/25 00:04 .Q48H [facility] Protocol PFSH Medical History Wears glasses Depression Anxiety History of steroid therapy Osteoarthritis Psoriatic arthritis High cholesterol History of IBS Heartburn Gastric reflux Non-smoker History of stress test Closed left ankle fracture thumb joint removal trigger finger release Asthma Anxiety and depression IBS (irritable bowel syndrome) Home Medications ?Medication ?Instructions ?Recorded ?Last Taken ?Type albuterol sulfate 90 mcg/actuation 2 puff inhalation Q6H PRN 09/11/20 Unknown History aerosol inhaler (ProAir HFA) shortness of breath or wheezing budesonide-formoterol HFA 160 2 puff inhalation BID 09/11/20 01/21/25 History mcg-4.5 mcg/actuation aerosol inhaler (Symbicort) guaifenesin 400 mg tablet 1,200 mg PO BID 09/11/20 01/20/25 History loperamide 2 mg tablet 2 mg PO Q6H PRN loose stool 09/11/20 01/20/25 History multivitamin with minerals (Men's 1 tab PO DAILY 09/11/20 01/20/25 History One Daily tablet) folic acid 1 mg tablet 2 mg PO DAILY 06/03/21 01/20/25 History methotrexate sodium 2.5 mg tablet 12.5 mg PO FR 06/03/21 01/18/25 History prednisone 10 mg tablet 10 mg PO DAILY PRN PSORIATIC 06/03/21 01/15/25 History ARTHRITIS FLARE UP diclofenac sodium 1 % topical gel 2 g topical BID PRN pain 01/14/25 Unknown History hydroxychloroquine 200 mg tablet 300 mg PO DAILY 01/14/25 01/20/25 History leucovorin calcium 15 mg tablet 15 mg PO SA Psoriatic arthritis 01/14/25 01/19/25 History loratadine 10 mg tablet (Claritin) 10 mg PO QDAY 01/14/25 01/20/25 History tizanidine 4 mg tablet 4 mg PO HS 01/14/25 01/20/25 History tramadol 50 mg tablet 50 mg PO TID PRN pain 01/14/25 01/20/25 History vilazodone 40 mg tablet (Viibryd) 80 mg PO DAILY 01/14/25 01/21/25 History Allergy/AdvReac Type Severity Reaction Status Date / Time cat dander Allergy Severe Anaphylaxis Verified 01/21/25 10:57 bupropion (From Wellbutrin) Allergy Intermediate Rash Verified 01/21/25 10:57 Family History Mother Myasthenia gravis Hypertension Father Arthritis Hyperlipidemia Parkinsons disease Surgical History H/O: vasectomy Social History household members: spouse and children Smoking Status: Never smoker alcohol intake: never substance use type: does not use what type of physical activity do you participate in: walking frequency: 5-6 times per week do you feel safe at home: Yes Review of Systems (Anesthesia) ROS Narrative System reviewed and no additional complaints, except as documented.
[2025-01-21] MEDS: 0.9% Normal Saline (1000mL) 1,000 ML 15 ML IV (11:19)
--- NOTE | 2025-01-21 13:03 | PCM.HP.STD ---
HPI - General HPI Narrative NICOLE LONDONO, is a 64 M who presents for left ankle open reduction internal fixation, syndesmosis repair, ankle arthroscopy, possible deltoid ligament repair. no change to h and p. rab, narcotic counselling, post op instructions. will remove cast after spinal. ok to proceed. left ankle marked. MR#: [id number] Acct: [id number] Name: NICOLE LONDONO Rep #: [id number] : 1960 Provider: Dr. Jim Choi MD Age/Sex: 64/M Location: [facility] [place]ONY Status: Signed Intake Vital Signs 08/11/2305:04 01/14/2510:46 Height 5 ft 6 in 5 ft 6 in Weight: 170 lb BMI 27.4 Intake Visit Reasons: LEFT ANKLE Allergies cat dander Allergy (Severe, Verified 01/14/25 10:33) Anaphylaxisbupropion (From Wellbutrin) Allergy (Intermediate, Verified 01/14/25 10:33) Rash Medications ?Medication ?Instructions ?Recorded ?Confirmed ?Type albuterol sulfate 90 mcg/actuation 2 puff inhalation Q6H PRN 09/11/20 01/14/25 History aerosol inhaler (ProAir HFA) budesonide-formoterol HFA 160 2 puff inhalation BID 09/11/20 01/14/25 History mcg-4.5 mcg/actuation aerosol inhaler (Symbicort) guaifenesin 400 mg tablet 400 mg PO Q4H 09/11/20 01/14/25 History loperamide 2 mg tablet 2 mg PO Q6H PRN 09/11/20 01/14/25 History multivitamin with minerals (Men's 1 tab PO DAILY 09/11/20 01/14/25 History One Daily tablet) folic acid 1 mg tablet 2 mg PO DAILY 06/03/21 01/14/25 History methotrexate sodium 2.5 mg tablet 12.5 mg PO QWEEK 06/03/21 01/14/25 History prednisone 10 mg tablet 10 mg PO DAILY PRN 06/03/21 01/14/25 History diclofenac sodium 1 % topical gel 2 g topical BID PRN 01/14/25 01/14/25 History hydroxychloroquine 200 mg tablet See Rx Instructions PO .COMPLEX 01/14/25 01/14/25 History leucovorin calcium 15 mg tablet 15 mg PO QDAY Psoriatic arthritis 01/14/25 01/14/25 History loratadine 10 mg tablet (Claritin) 10 mg PO QDAY 01/14/25 01/14/25 History tizanidine 4 mg tablet 4 mg PO HS 01/14/25 01/14/25 History tramadol 50 mg tablet 50 mg PO TID PRN 01/14/25 01/14/25 History vilazodone 40 mg tablet (Viibryd) 80 mg PO DAILY 01/14/25 01/14/25 History PFSH Medical History (Updated 01/14/25 @ 11:27 by Jim Choi MD) Closed left ankle fracture thumb joint removal trigger finger release Asthma Anxiety and depression IBS (irritable bowel syndrome) Surgical History H/O: vasectomy Family History Mother Myasthenia gravis HypertensionFather Arthritis Hyperlipidemia Parkinsons disease Social History (Updated 01/14/25 @ 10:38 by Kate Lang) household members: spouse and children Smoking Status: Never smoker alcohol intake: never substance use type: does not use what type of physical activity do you participate in: walking frequency: 5-6 times per week do you feel safe at home: Yes HPI LEFT ANKLE Details: This documentation accurately reflects the service provided and the decisions made by me, Dr. Jim Choi MD 01/14/25 1124. Part of today?s visit was documented by [ ], acting as scribe. NICOLE LONDONO is a 64 year old M here today for left ankle fracture. The patient was putting away some luggage during a trip to [place] on with his tripped and fell twisted his ankle had ankle fracture no dislocation had a splint placed. He is referred to the office this was about 10 days ago now. No prior pain or other problems about the ankle. Patient does have a history of psoriatic arthritis he is on methotrexate for that he sees Dr. Silva. Patient is not on any blood thinners. He does have generalized anxiety disorder and irritable bowel syndrome. Supplemental Info Radiographs reviewed from the time of injury show a widening syndesmosis and slight lateral shift of the talus a comminuted distal fibula Aguillon B fracture as well as a very small posterior malleolus fragment involving 5% or less of the joint surface that appears nondisplaced. an avulsion of the deltoid ligament from the medial malleolus. Repeat radiographs 3 views the ankle were obtained today that show a similar pattern but good alignment of the mortise. Coding Level of Care Code Off vis,new,level 3 Diagnoses Closed left ankle fracture S82.892A Assessment and Plan Assessment and Plan (1) Closed left ankle fracture: Status: Acute Plan: 64-year-old man with a Aguillon B comminuted distal fibula fracture with widening of the syndesmosis and a small posterior malleolus fracture as well an avulsion of the deltoid ligament from the medial malleolus. Discussed the diagnosis prognosis different treatment options available to the patient. Nonoperative would result in a high rate of ankle osteoarthritis given the talar shift and syndesmosis ankle instability. Would recommend surgery. This would be in the form of a left ankle open reduction internal fixation, syndesmosis repair, ankle arthroscopy, possible deltoid ligament repair. Discussed the recovery associated with that 6 weeks of limited weightbearing 3 to 4 months before full weightbearing. The patient understands wished to go ahead with surgery signed the consent form we will place in a below knee circumferential fiberglass cast today for stability the swelling looks good recommend nonweightbearing and will try to get the case done on Tuesday as an add-on. pros and cons risks and benefits were discussed with the patient including but not limited to infection, pain, stiffness, bleeding, damage to surrounding structures, neurovascular injury, recurrence or retear, failure or wear of hardware or fixation, instability, fracture, deep vein thrombosis and pulmonary embolism, anesthetic risks, , patient dissatisfaction, need for further surgery and other risks. Patient understood and wished to proceed with surgery, and signed the informed consent documentation. Orders: Orders Ankle min 3 Views Today S82.892A - Other fracture of left lower leg, initial encounter for closed fracture Ortho Exam General General: Yes no acute distress Neurologic: Yes alert and Yes oriented x3 Psychologic: Yes reasonable and appropriate Left Foot/Ankle Date of injury: 01/04/25 Skin: Yes CDI and Ecchymosis; No Soft Tissue Swelling or Erythema Exam: Yes Ecchymosis, TTP Lateral Malleolus and TTP Medial Malleolus; No Soft tissue swelling or Erythema Compartments: soft Motor: Ankle Dorsiflextion: 4, Ankle Plantar Flexion: 4, Ankle Eversion: 4, Ankle Inversion: 4 and EHL: 4 Sensation: Deep Peroneal Nerve: I, Superficial Peroneal Nerve: I, Tibial Nerve: I, Sural Nerve: I and Saphenous Nerve: I Pulses: Dorsalis Pedis: 2 ANKLE: There is quite a bit of ecchymosis around the medial aspect of the ankle but the swelling is acceptable. There is no pain proximally. He is able to wiggle the toes. [facility] Medical History Wears glasses Depression Anxiety History of steroid therapy Osteoarthritis Psoriatic arthritis High cholesterol History of IBS Heartburn Gastric reflux Non-smoker History of stress test Closed left ankle fracture thumb joint removal trigger finger release Asthma Anxiety and depression IBS (irritable bowel syndrome) Home Medications ?Medication ?Instructions ?Recorded ?Last Taken ?Type albuterol sulfate 90 mcg/actuation 2 puff inhalation Q6H PRN 09/11/20 Unknown History aerosol inhaler (ProAir HFA) shortness of breath or wheezing budesonide-formoterol HFA 160 2 puff inhalation BID 09/11/20 01/21/25 History mcg-4.5 mcg/actuation aerosol inhaler (Symbicort) guaifenesin 400 mg tablet 1,200 mg PO BID 09/11/20 01/20/25 History loperamide 2 mg tablet 2 mg PO Q6H PRN loose stool 09/11/20 01/20/25 History multivitamin with minerals (Men's 1 tab PO DAILY 09/11/20 01/20/25 History One Daily tablet) folic acid 1 mg tablet 2 mg PO DAILY 06/03/21 01/20/25 History methotrexate sodium 2.5 mg tablet 12.5 mg PO FR 06/03/21 01/18/25 History prednisone 10 mg tablet 10 mg PO DAILY PRN PSORIATIC 06/03/21 01/15/25 History ARTHRITIS FLARE UP diclofenac sodium 1 % topical gel 2 g topical BID PRN pain 01/14/25 Unknown History hydroxychloroquine 200 mg tablet 300 mg PO DAILY 01/14/25 01/20/25 History leucovorin calcium 15 mg tablet 15 mg PO SA Psoriatic arthritis 01/14/25 01/19/25 History loratadine 10 mg tablet (Claritin) 10 mg PO QDAY 01/14/25 01/20/25 History tizanidine 4 mg tablet 4 mg PO HS 01/14/25 01/20/25 History tramadol 50 mg tablet 50 mg PO TID PRN pain 01/14/25 01/20/25 History vilazodone 40 mg tablet (Viibryd) 80 mg PO DAILY 01/14/25 01/21/25 History Allergy/AdvReac Type Severity Reaction Status Date / Time cat dander Allergy Severe Anaphylaxis Verified 01/21/25 10:57 bupropion (From Wellbutrin) Allergy Intermediate Rash Verified 01/21/25 10:57 Family History Mother Myasthenia gravis Hypertension Father Arthritis Hyperlipidemia Parkinsons disease Surgical History H/O: vasectomy Social History household members: spouse and children Smoking Status: Never smoker alcohol intake: never substance use type: does not use what type of physical activity do you participate in: walking frequency: 5-6 times per week do you feel safe at home: Yes Vital Signs Vital Signs Vital Signs: 01/21/25 11:00 01/21/25 11:03 01/21/25 11:31 Temperature 97.4 F L 97.4 F L Temperature Source Temporal Pulse Rate 98 98 Respiratory Rate 12 12 Respiratory Pattern Normal Blood Pressure 118/86 H 118/86 H Blood Pressure Mean 96 Blood Pressure Source Monitor Blood Pressure Position Semi-Fowlers Blood Pressure Location Left Arm Pulse Ox 98 98 Oxygen Delivery Method Room Air Weight Weight: 170 lb Body Mass Index (BMI) 27.4
[2025-01-21] MEDS: Cefazolin 2 GM in Syringe IV (13:39)
--- NOTE | 2025-01-21 13:55 | RAD_ITS ---
PROCEDURE: Intraoperative fluoroscopic services. REASON FOR EXAM: Fluoroscopic services provided for open reduction internal fixation of the distal fibular fracture. TECHNIQUE: Intraoperative fluoroscopic services. COMPARISON: Prior study dated January 14, 2025. FINDINGS: Intraoperative fluoroscopic services provided for ORIF of the distal fibula fracture. There is good alignment RAD/Ankle 2 Views IMPRESSION: Good alignment of the ORIF of the distal fibular fracture. Reading Location: [facility]
[2025-01-21] MEDS: Bupivacaine 0.25% 30 ML Vial (14:40)
--- NOTE | 2025-01-21 15:02 | OP.PCM_ITS ---
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 Tasks completed by assistant accounting manager: Retracting Additional assistant warehouse manager?: No Type of Anesthesia: Local and Spinal/Supplemental RN Documented Start/Stop Times: Operation Date: 01/21/25 12:05 Case Time Into Pre-Op 01/21/25 10:43 Anesthesia Start 01/21/25 13:39 Into Room 01/21/25 13:39 Procedure Start 01/21/25 13:55 Procedure End 01/21/25 15:00 Procedure Start Time: 13:55 Procedure Stop Time: 15:00 Select all DRAINS/GRAFTS/IMPLANTS that apply: Implanted device Implanted device details: arthrex locking fibula plate, tight rope for syndesmosis Estimated Blood Loss: 25 Specimen collected: No Description of surgery: Patient brought to the operating room theater. Placed supine on the table. Spinal with sedation. 2 g IV Ancef administered prior to the start of the case. Bump under the left hip. 34 inch tourniquet applied to left thigh appropriately padded. Lower extremity prepped and draped in the usual sterile fashion allowing over 3 minutes drying time prior to draping. Preoperative timeout performed to confirm the site patient the surgery. Began by elevating the limb inflated tourniquet to 250 millimeters of mercury. Made a lateral incision centered over the distal fibula carried the dissection down through skin and subcutaneous tissue achieved meticulous hemostasis. Identified the fracture site. There is about a centimeter loose comminuted fragment I had to remove this clean soft tissue and cleaning up the fracture site using curettes and rongeur's of any interposed hematoma and fracture periosteum and then put the comminuted segment back there to maintain the length. I selected a Synthes precontoured lateral distal fibula locking plate. I placed this laterally at the lateral distal fibula. Took intraoperative radiographs to ensure appropriate placement of the plate. I then inserted 4 proximal fully threaded cortical screws to fix the plate to bone as well as cla mping across the fracture site as well as clamping the plate to the bone and across the ankle mortise with a large fracture reduction clamp to ensure appropriate reduction of the syndesmosis and length of the fracture and appropriate placement of the plate onto the bone. I then inserted 5 fully threaded cortical locking screws at the distal fragment. I then again took radiographs the talar shift has been reduced with a normal-appearing small posterior malleolus fracture that appears well aligned. I then passed the guidewire for the Arthrex tightrope at the syndesmosis level across all 4 cortices. Keeping this parallel to the joint surface. I then overdrilled this placed the tight rope device deployed the button flipped the button and then sequentially pulled on both limbs to tighten the tight rope device. Then tied over top of this cut the suture short. I ensured that there is no widening of the syndesmosis or overtightening. I did a lateral stress test as well as cotton test and external rotation stress test to ensure no widening of the syndesmosis and no talar tilt with the medial gutter space appearing normal. Given the normal talar tilt today I did not go ahead and do anything the repair that deltoid ligament. Then inserted the Cathleen arthroscopy arthroscope into the tibiotalar joint status standard anterolateral and anteromedial arthroscopy portals. There is just some mild scuffing in the central aspect of the talus distal tibia very minor grade 1 scuffing no need for any sort of cartilage repair techniques. Gentle debridement, evacuation of hematoma, and debrided some minor soft tissue fraying at lateral joint. Pictures taken and saved onto the system case terminated tourniquet let down. Wound thoroughly irrigated meticulous hemostasis achieved. 2-0 Vicryl sutures and 3-0 Monocryl used to close the subcutaneous tissue and the skin. 10 cc of quarter percent bupivacaine used. Skin cleaned with wet dry dressing followed application of Steri-Strips Adaptic 4 x 4 gauze ABD dressing sterile cast padding and a posterior fiberglass splint the foot and ankle in neutral loosely wrapped with Mitchell wrap. Patient woken up from the anesthetic transferred off the operating table taken to postanesthetic care unit in stable condition. All sponge needle instrument counts were correct no complications plan for the patient nonweightbearing discharge home according to day surgery criteria. cpt 00869, [id number], [id number], [id number]? Surgical Findings: as above Complications Complications: No Admit VTE Documentation VTE Present on Admission: Yes VTE Mechan Device Prophylaxis: SCD's VTE Pharm Prophylaxis ordered?: No Reason prophylaxis not ordered: Treatment Not Indicated
--- NOTE | 2025-01-21 15:10 | PCM.POST.ANE ---
Anesthesia: Postop Eval I Current Vital Signs Temperature: 97.2 F Pulse Rate: 81 Blood Pressure: 114/70 Respiratory Rate: 16 Pulse Ox: 96 Assessment Airway patent: Yes Spontaneous unlabored respirations: Yes nausea: No Vomiting: No Anesthesia Complication: No Fluid Hydration Crystalloid volume administer (ml): 1,000 Total IV fluid infused: 1,000 Progress Note Anesthesia document: Postop Eval 1 completed: Yes
--- NOTE | 2025-01-21 15:13 | DCINST_ITS ---
Discharge Instructions Diet Discharge Diet: No restrictions Activity Discharge Activity: Use Crutches Ice area for (Minutes): 10 Weight Bearing Status: No weight bearing Lifting Restrictions: no lifting Keep extremity elevated above heart level: Operative Extremity Dressing / Incision Call your doctor if your incision/area has: Continuous Slow Oozing, Sudden Increased Bleeding, Increased Pain/ Swelling, Increased Redness, Foul Smelling Discharge and Swelling at the incision site Call your doctor if you observe: Fever of 101 or Higher, Coldness, Increased Pain and Numbness or Tingling Change Dressing in: leave in place till F/U Cleanse incision/area with: Do not get Incision Wet Follow Up Care Please Follow Up With: Jmi Choi MD When: within 2 weeks Test Results: Test results from this visit will be discussed in further detail at your follow- up appointment, if applicable. Discharge Plan Admission Attending Provider: Jim Choi Primary Care Provider: Leonarda Hare Instructions Print Language: Bulgarian Discharge Orders/Prescriptions Prescriptions: New oxycodone-acetaminophen [Endocet] 5-325 mg tablet 1 tab PO Q4H MDD 6 PRN (Reason: pain) 5 Days Qty: 20 0RF No Action budesonide-formoterol [Symbicort] 160-4.5 mcg/actuation HFA aerosol inhaler 2 puff INHALATION BID albuterol sulfate [ProAir HFA] 90 mcg/actuation HFA aerosol inhaler 2 puff INHALATION Q6H PRN (Reason: shortness of breath or wheezing) multivitamin with minerals [Men's One Daily] Tablet 1 tab PO DAILY guaifenesin 400 mg tablet 1,200 mg PO BID loperamide 2 mg tablet 2 mg PO Q6H PRN (Reason: loose stool) Viibryd 40 mg tablet 80 mg PO DAILY Rx Instructions: must administer with a meal/food prednisone 10 mg tablet 10 mg PO DAILY PRN (Reason: PSORIATIC ARTHRITIS FLARE UP ) folic acid 1 mg tablet 2 mg PO DAILY methotrexate sodium 2.5 mg tablet 12.5 mg PO FR diclofenac sodium 1 % gel 2 g topical BID PRN (Reason: pain) Patient Comments: APPLY TO AFFECTED AREA 1 TO 2 TIMES DAILY leucovorin calcium 15 mg tablet 15 mg PO SA Patient Comments: Once a week the morning after I take my Methotrexate. loratadine [Claritin] 10 mg tablet 10 mg PO QDAY hydroxychloroquine 200 mg tablet 300 mg PO DAILY Patient Comments: [NO ORIGINAL SIG] Rx Instructions: orally; 1 tab q other AM and 1 tab q evening. tramadol 50 mg tablet 50 mg PO TID PRN (Reason: pain) tizanidine 4 mg tablet 4 mg PO HS Referrals / Follow Up: Leonarda Hare MD [Primary Care Provider] - Jim Choi MD [Med Staff - Active Staff] - Disposition Disposition (needs filled in before D/C Order can be placed): Home, Self Care
--- NOTE | 2025-01-21 15:23 | POSTOPAN2_ITS ---
Anesthesia Postop Eval I Sum Postop Eval Completion status Anesthesia document: Postop Eval 1 completed: Yes Anesthesia Postop Eval I Summary Anesthesia Postop Eval I Summary: Anesthesia Postop Eval I: Assessment Summary Airway patent Yes 01/21/25 15:10 [email or web address] Spontaneous unlabored Yes 01/21/25 15:10 [email or web address] [email or web address] respirations Mental status nausea No 01/21/25 15:10 [email or web address] Vomiting No 01/21/25 15:10 [email or web address] [email or web address] Anesthesia Postop Eval I: Fluid Summary Crystalloid volume administer 1,000 01/21/25 15:10 [email or web address] (ml) Colloids volume administered ( ml) Blood Product volume administered (ml) Total IV fluid infused 1,000 01/21/25 15:10 [email or web address] [email or web address] Anesthesia Postop Eval I: Summary Notes Anesthesia Complication No 01/21/25 15:10 [email or web address] [email or web address] Anesthesia Complication Comment: Post-operative progress note Anesthesia: Postop Eval II Evaluation Mental status: Awake Pain Level: 1 nausea: No Vomiting: No
--- NOTE | 2025-01-21 15:23 | PCM.POSTANE2 ---
Anesthesia Postop Eval I Sum Postop Eval Completion status Anesthesia document: Postop Eval 1 completed: Yes Anesthesia Postop Eval I Summary Anesthesia Postop Eval I Summary: Anesthesia Postop Eval I: Assessment Summary Airway patent Yes 01/21/25 15:10 [email or web address] Spontaneous unlabored Yes 01/21/25 15:10 POLYGRAPH [email or web address] respirations Mental status nausea No 01/21/25 15:10 POLYGRAPH [email or web address] Vomiting No 01/21/25 15:10 POLYGRAPH [email or web address] Anesthesia Postop Eval I: Fluid Summary Crystalloid volume administer 1,000 01/21/25 15:10 POLYGRAPH [email or web address] (ml) Colloids volume administered ( ml) Blood Product volume administered (ml) Total IV fluid infused 1,000 01/21/25 15:10 POLYGRAPH [email or web address] Anesthesia Postop Eval I: Summary Notes Anesthesia Complication No 01/21/25 15:10 POLYGRAPH [email or web address] Anesthesia Complication Comment: Post-operative progress note Anesthesia: Postop Eval II Evaluation Mental status: Awake Pain Level: 1 nausea: No Vomiting: No
== END 2025-01-21 17:55 | disposition home or self-care (01) ==
LOC: SDC 10:26 → AC 10:32
PROVIDERS: PCP Family Medicine; Referring Provider Orthopaedic Surgery Sports Medicine; Visit Provider Orthopaedic Surgery Sports Medicine
PROC: (CPT 27792; principal; 2025-01-21 11:45)
DX: S82.892A Other fracture of left lower leg, initial encounter for closed fracture (principal); Z79.51 Long term (current) use of inhaled steroids; F41.1 Generalized anxiety disorder; K58.9 Irritable bowel syndrome, unspecified; J45.909 Unspecified asthma, uncomplicated; Z98.52 Vasectomy status; W01.0XXA Fall on same level from slipping, tripping and stumbling without subsequent striking against object, initial encounter
CPT/HCPCS: 27792; 27829; 29897; 27767; 01480; 73600; 76000; 93005; C1713

== ENCOUNTER → 2025-02-12 | Outpatient (CLI) | payer BC, SELFPAY ==
[2025-02-12 16:12] LABS: Absolute Lymphocyte Count 2.11 X10^3/uL (0.83-4.51); Absolute Neutrophil Count 3.9 X10^3/uL (2.0-7.7); Basophil# 0.06 X10^3/uL; Basophil% 0.9 % (0-1); Eosinophil# 0.15 X10^3/uL; Eosinophils% 2.2 % (0-5); Hemoglobin 13.6 g/dL (13.0-16.5); Lymphocyte # 2.11 X10^3/ul (0.83-4.51); Lymphocyte % 30.7 % (19-41); Mean Corp Hgb Conc 33.2 g/dL (32-36); Mean Corpuscular Hgb 32.1 pg (27.0-32.0); Mean Corpuscular Volume 96.7 fL (80-94); Mean Platelet Vol. 9.9 fl (6.2-12.0); Monocyte# 0.58 X10^3/uL; Monocyte% 8.4 % (0-10); NRBC Flagged by Analyzer 0 % (0-5); Neutrophil # 3.94 X10^3/uL (2.7-7.7); Neutrophil % 57.4 % (47-70); Platelet Count 387 K/mm3 (150-450); RBC Distribution Width CV 12.8 % (11.6-14.6); RBC Distribution Width SD 45.1 fl (35.1-43.9); Red Blood Count 4.24 M/mm3 (4.6-6.2); White Blood Count 6.9 K/mm3 (4.4-11.0)
[2025-02-12 17:16] LABS: ALB/GLOB Ratio 1.6 RATIO (0.9-2.4); AST(SGOT) 41 U/L (<=37); Alanine Aminotransfer ALT/SGPT 28 U/L (<=46); Albumin, Serum 4.4 g/dL (3.4-4.8); Alkaline Phosphatase 88 U/L (40-129); Anion Gap 11 (5-15); BUN 21 mg/dL (4-19); BUN/Creat Ratio 17.5 RATIO (10-20); Calcium,Total 10.1 mg/dL (7.6-11.0); Carbon Dioxide 27.6 mmol/L (21.0-32.0); Chloride 101 mmol/L (98-108); Creatinine, Serum 1.22 mg/dL (0.70-1.20); EST Glomerular Filtration Rate 66 (>60); Globulin 2.8 g/dL (2.2-4.2); Glucose 92 mg/dL (70-99); Potassium 4.8 mmol/L (3.3-5.1); Protein, Total 7.2 g/dL (5.9-8.4); Sodium Level 139 mmol/L (133-145)
== END | disposition home or self-care (01) ==
LOC: MTLAB 10:53
PROVIDERS: PCP Family Medicine; Referring Provider Internal Medicine Rheumatology; Visit Provider Internal Medicine Rheumatology
DX: L40.59 Other psoriatic arthropathy (principal); Z79.899 Other long term (current) drug therapy
CPT/HCPCS: 36415; 80053; 85025

== ENCOUNTER 2025-04-08 11:00 | Outpatient (RCR) | payer BC, SELFPAY ==
--- NOTE | 2025-02-11 12:45 | HP.PTEVAL_ITS ---
Patient's Visit Information Visit Information Visit Information: NICOLE LONDONO is a 65 year old M referred to Physical Therapy by Dr. Jim Choi MD with a diagnosis of L ankle Fx 01/21/25. Date of Evaluation: 02/11/25 Physical Therapist: Fede Marks, PT, ATC Visit Plan Frequency: 2x /Week Duration: 4-6 Weeks Plan: Begin PT after pt sees in 2 weeks. Begin with PROM/mobs, stretching an d strengthening, balance and proprio, nustep, and HEP Subjective Subjective: DOS: 01/21/25. Pt reports he fell and fractured his L ankle which required surgery. Pt is healing well at this time. Pt reports he is NWB'ing at this time for 6 weeks. Pt denies any prior L ankle fractures. Pt reports he has 3 stairs to negotiate to enter his house, which he hops up and down the stairs. Pt reports he has good sensation in his L LE. 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 Pt reports no sleep difficulty secondary to pain at this time. Pt reports he and his like to go on walks daily, and his goal by April is to be able to go on his normal mile walk. 1/10 pain while sitting here at rest, 8/10 pain at worst. Pain L ankle Fx: Pain Intensity (Out of 10): 1 Pain Intensity Range: 8 Objective Objective: Neuro: B LE sensation is WNL to light touch. Observation: Incisions are healed. No signs of infection ROM: R ankle DF= 8, PF= 55 degrees; L ankle DF= 0, PF= 50 degrees MMT: R ankle DF= 32, PF= 60; L ankle DF= 24, PF= 13 #F Balance/Special Test Scores Lower Extremity Functional Score: 11 Goals Goal 1:: Pt will perform the TUG test in under 10 seconds Goal Time Frame: 4-6 Weeks Goal 2:: Increase L ankle DF ROM x 10 degrees to aid with restoring a more no rmalized gait pattern Goal Time Frame: 4-6 Weeks Goal 3:: Increase L ankle PF strength x 20#F to aid with stair negotiation Goal Time Frame: 4-6 Weeks Goal 4:: I with HEP Goal Time Frame: 4-6 Weeks Rehabilitation Potential Physical Therapy Diagnosis: Pt has L ankle pain, weakness, and limited ROM secondary to L ankle Fx Rehabilitation Potential: Good Anticipated Interventions Patient/Client Instruction: Educate patient on: Condition and Plan of Care For the Purpose of:: To improve self management Therapeutic Exercise to Include: Strength training, Endurance training, Balance training, Flexibilty training, Passive ROM and Active ROM For the Purpose of:: To decrease pain, To increase ROM and To improve muscle performance and motor function Text: Thank you for the opportunity to evaluate your patient. For Medicare and Medicare HMO plans, please review the plan of care and approve it. It will need to be FAXED BACK to us at [phone] for Medicare purposes. For Medicare only, by signing this I certify the plan of care. Please let me know if there are questions or concerns regarding this plan of care. Physician Signature: Date:
--- NOTE | 2025-04-08 11:33 | HP.PTDCSUM ---
Discharge Summary D/C summary: It has been my pleasure to treat NICOLE LONDONO referred by Dr. Jim Choi MD, with the diagnosis of L ankle Fx 01/21/25 for a total of 9 visit(s). Discharge Date: Please see the following information for a summary of their discharge status. 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 Pain L ankle Fx: Pain Intensity (Out of 10): 1 Overall Improvement % Improvement: 50 Objective Objective/Function: L ankle pain 11/30 L ankle PF MMT= 54 #F L ankle DF ROM 12 degrees TUG 7.68 seconds Pt is I with HEP Goals Goal 1:: Pt will perform the TUG test in under 10 seconds Goal Progress: Goal Met Goal 2:: Increase L ankle DF ROM x 10 degrees to aid with restoring a more normalized gait pattern Goal Progress: Goal Met Goal 3:: Increase L ankle PF strength x 20#F to aid with stair negotiation Goal Progress: Goal Met Goal 4:: I with HEP Goal Progress: Goal Met Plan Plan: Discharge D/C Information d/c sentence: If there are questions or concerns regarding this patient's physical therapy, please feel free to call me at [phone]. Thank you for the referral of this patient. Sincerely, Fede Marks, PT, ATC Balance/Gait/Functional tests Balance/Special Test Scores Lower Extremity Functional Score: 67 Improvement % Improvement: 50
== END 2025-04-08 19:00 | disposition home or self-care (01) ==
LOC: PT 11:00
PROVIDERS: PCP Family Medicine; Referring Provider Orthopaedic Surgery Sports Medicine; Visit Provider Orthopaedic Surgery Sports Medicine
DX: S82.892D Other fracture of left lower leg, subsequent encounter for closed fracture with routine healing (principal)
CPT/HCPCS: 97110; 97140; 97161; 97530

== ENCOUNTER → 2025-04-11 | Outpatient (CLI) | payer BC, SELFPAY ==
--- NOTE | 2025-04-11 13:20 | RAD_ITS ---
PROCEDURE: SHOULDER MIN 2 VIEWS 04/11/2025 REASON FOR EXAM: PAIN AFTER LIFTING TECHNIQUE: Four views left shoulder COMPARISON: None available FINDINGS: No fracture or dislocation. The joint spaces appear within limits. Visualized left lung appears clear. RAD/Shoulder min 2 Views IMPRESSION: No fracture or dislocation. Reading Location: [id number]
== END | disposition home or self-care (01) ==
LOC: MTRAD 13:18
PROVIDERS: PCP Family Medicine; Referring Provider Family Medicine; Visit Provider Family Medicine
DX: M67.912 Unspecified disorder of synovium and tendon, left shoulder (principal)
CPT/HCPCS: 73030

== ENCOUNTER → 2025-05-13 | Outpatient (CLI) | payer BC, SELFPAY ==
[2025-05-13 15:14] LABS: Absolute Lymphocyte Count 1.79 X10^3/uL (0.83-4.51); Absolute Neutrophil Count 2.8 X10^3/uL (2.0-7.7); Basophil# 0.05 X10^3/uL; Eosinophil# 0.11 X10^3/uL; Eosinophils% 2.1 % (0-5); Hematocrit 38.3 % (40-54); Hemoglobin 12.9 g/dL (13.0-16.5); Lymphocyte # 1.79 X10^3/ul (0.83-4.51); Lymphocyte % 34.7 % (19-41); Mean Corp Hgb Conc 33.7 g/dL (32-36); Mean Corpuscular Hgb 31.7 pg (27.0-32.0); Mean Corpuscular Volume 94.1 fL (80-94); Mean Platelet Vol. 9.8 fl (6.2-12.0); Monocyte# 0.38 X10^3/uL; Monocyte% 7.4 % (0-10); NRBC Flagged by Analyzer 0 % (0-5); Neutrophil # 2.82 X10^3/uL (2.7-7.7); Neutrophil % 54.6 % (47-70); Platelet Count 294 K/mm3 (150-450); RBC Distribution Width CV 13.1 % (11.6-14.6); RBC Distribution Width SD 44.7 fl (35.1-43.9); Red Blood Count 4.07 M/mm3 (4.6-6.2); White Blood Count 5.2 K/mm3 (4.4-11.0)
[2025-05-13 15:43] LABS: ALB/GLOB Ratio 1.8 RATIO (0.9-2.4); AST(SGOT) 40 U/L (<=37); Alanine Aminotransfer ALT/SGPT 27 U/L (<=46); Albumin, Serum 4.2 g/dL (3.4-4.8); Alkaline Phosphatase 74 U/L (40-129); Anion Gap 10 (5-15); BUN 23 mg/dL (4-19); BUN/Creat Ratio 16.8 RATIO (10-20); Calcium,Total 9.4 mg/dL (7.6-11.0); Carbon Dioxide 26.7 mmol/L (21.0-32.0); Chloride 103 mmol/L (98-108); Creatinine, Serum 1.35 mg/dL (0.70-1.20); EST Glomerular Filtration Rate 59 (>60); Globulin 2.3 g/dL (2.2-4.2); Glucose 116 mg/dL (70-99); Potassium 4.1 mmol/L (3.3-5.1); Protein, Total 6.5 g/dL (5.9-8.4); Sodium Level 139 mmol/L (133-145); Total Bilirubin 0.26 mg/dL (0.00-1.30)
== END | disposition home or self-care (01) ==
LOC: MTLAB 13:42
PROVIDERS: PCP Family Medicine; Referring Provider Internal Medicine Rheumatology; Visit Provider Internal Medicine Rheumatology
DX: L40.59 Other psoriatic arthropathy (principal); Z79.899 Other long term (current) drug therapy; L40.8 Other psoriasis; K76.0 Fatty (change of) liver, not elsewhere classified
CPT/HCPCS: 36415; 80053; 85025

== ENCOUNTER 2025-06-04 10:00 | Outpatient (RCR) | payer BC, SELFPAY ==
--- NOTE | 2025-05-29 11:59 | HP.PTEVAL_ITS ---
Patient's Visit Information Visit Information Visit Information: NICOLE LONDONO is a 65 year old M referred to Physical Therapy by Dr. Leonarda Hare MD with a diagnosis of L shoulder pain. Date of Evaluation: 05/29/25 Physical Therapist: Fede Marks, PT, ATC Visit Plan Frequency: 1x/Week Duration: 1 Week Plan: Issue and instruct pt on HEP of L rotator cuff strengthening and stab ex's Subjective Subjective: Pt reports he has had L shoulder pain for approximately 2-3 months. Pt notes he was reaching down for a book case when he experienced severe pain in his L shoulder. Pt notes the pain is located on the lateral aspect of his L shoulder. Pt reports his pain initially radiated down the lateral aspect of his L shoulder, but it doesn't anymore. Pt notes he feels like his shoulder is starting to feel a little better at this time. Pt is R hand dominant. Pt denies any prior Hx of L shoulder complications at this time. Pt notes he has had x- rays on his L shoulder with revealed no significant findings. No sleep difficulty at this time secondary to pain. Pt reports he was very limited with ADL's and IADL's at first, but no limitations at this time. Pt reports 0/10 L shoulder pain while sitting here in the clinic, but notes it elevates to 1/10 with lateral reaching. Pain L shoulder: Pain Intensity (Out of 10): 0 Pain Intensity Range: 1 Objective Objective: Neuro: B UE sensation is WNL to light touch. Palpation: No pain with palpation, no obvious deformity ROM: R shoulder flex= 165, abd= 165, ER= 60, IR= WNL ; L shoulder flex= 140, abd= 165, ER= 55, IR= WNL MMT: R shoulder flex= 20, abd= 28, ER= 21, IR= 23 #F; L shoulder flex= 17, abd= 28, ER= 19, IR= 25 #F Special tests: Pos Neers impingement Balance/Special Test Scores Quick DASH Score: 11.3625 Goals Goal 1:: Pt will be I with HEP Goal Time Frame: 1 Week Rehabilitation Potential Physical Therapy Diagnosis: Pt had L shoulder pain and weakness secondary to impingement syndrome Rehabilitation Potential: Excellent Anticipated Interventions Patient/Client Instruction: Educate patient on: Condition and Plan of Care For the Purpose of:: To improve self management Therapeutic Exercise to Include: Strength training, Endurance training, Active ROM and Scapular Strength/Stabilization For the Purpose of:: To decrease pain, To increase ROM and To improve muscle performance and motor function Text: Thank you for the opportunity to evaluate your patient. For Medicare and Medicare HMO plans, please review the plan of care and approve it. It will need to be FAXED BACK to us at [phone] for Medicare purposes. For Medicare only, by signing this I certify the plan of care. Please let me know if there are questions or concerns regarding this plan of care. Physician Signature: ___Date:
--- NOTE | 2025-06-04 10:33 | HP.PTDCSUM ---
Discharge Summary D/C summary: It has been my pleasure to treat NICOLE LONDONO referred by Dr. Leonarda Hare MD, with the diagnosis of L shoulder pain for a total of 2 visit(s). Discharge Date: Please see the following information for a summary of their discharge status. Subjective Subjective: I dont have any pain today Pain L shoulder: Pain Intensity (Out of 10): 0 Objective Objective/Function: Pt is now I with HEP Goals Goal 1:: Pt will be I with HEP Plan Plan: Discharge to HEP D/C Information d/c sentence: If there are questions or concerns regarding this patient's physical therapy, please feel free to call me at [phone]. Thank you for the referral of this patient. Sincerely, Fede Marks, PT, ATC Balance/Gait/Functional tests Balance/Special Test Scores Quick DASH Score: 11.3626
== END 2025-06-04 14:11 | disposition home or self-care (01) ==
LOC: PT 10:00
PROVIDERS: PCP Family Medicine; Referring Provider Family Medicine; Visit Provider Family Medicine
DX: M67.912 Unspecified disorder of synovium and tendon, left shoulder (principal)
CPT/HCPCS: 97110; 97161

== ENCOUNTER → 2025-08-05 | Outpatient (CLI) | payer BC, SELFPAY ==
[2025-08-05 15:28] LABS: Hematocrit 39.4 % (40-54); Hemoglobin 13.6 g/dL (13.0-16.5); Immature Granulocytes Count 0.020 X10^3/uL (0.0-0.0); Mean Corp Hgb Conc 34.5 g/dL (32-36); Mean Corpuscular Volume 93.6 fL (80-94); Mean Platelet Vol. 9.8 fl (6.2-12.0); NRBC Flagged by Analyzer 0 % (0-5); Platelet Count 303 K/mm3 (150-450); RBC Distribution Width CV 12.8 % (11.6-14.6); RBC Distribution Width SD 43.6 fl (35.1-43.9); Red Blood Count 4.21 M/mm3 (4.6-6.2); White Blood Count 5.5 K/mm3 (4.4-11.0)
[2025-08-05 18:09] LABS: AST(SGOT) 43 U/L (<=37); Alanine Aminotransfer ALT/SGPT 28 U/L (<=46); Albumin, Serum 4.3 g/dL (3.4-4.8); Alkaline Phosphatase 72 U/L (40-129); Anion Gap 12 (5-15); BUN 20 mg/dL (4-19); BUN/Creat Ratio 15.0 RATIO (10-20); Calcium,Total 9.8 mg/dL (7.6-11.0); Carbon Dioxide 25.7 mmol/L (21.0-32.0); Chloride 102 mmol/L (98-108); Globulin 2.4 g/dL (2.2-4.2); Glucose 89 mg/dL (70-99); Potassium 4.0 mmol/L (3.3-5.1)
== END | disposition home or self-care (01) ==
LOC: MTLAB 13:28
PROVIDERS: PCP Family Medicine; Referring Provider Internal Medicine Rheumatology; Visit Provider Internal Medicine Rheumatology
DX: L40.59 Other psoriatic arthropathy (principal); Z79.899 Other long term (current) drug therapy
CPT/HCPCS: 36415; 80053; 85025

== ENCOUNTER → 2025-11-01 | Outpatient (CLI) | payer BC, SELFPAY ==
[2025-11-01 12:36] LABS: Hematocrit 40.0 % (40-54); Hemoglobin 13.7 g/dL (13.0-16.5); Immature Granulocytes Count 0.020 X10^3/uL (0.0-0.0); Mean Corp Hgb Conc 34.3 g/dL (32-36); Mean Corpuscular Volume 94.6 fL (80-94); Mean Platelet Vol. 9.8 fl (6.2-12.0); NRBC Flagged by Analyzer 0 % (0-5); Platelet Count 292 K/mm3 (150-450); RBC Distribution Width CV 12.8 % (11.6-14.6); RBC Distribution Width SD 43.5 fl (35.1-43.9); Red Blood Count 4.23 M/mm3 (4.6-6.2); White Blood Count 5.9 K/mm3 (4.4-11.0)
[2025-11-01 12:45] LABS: AST(SGOT) 47 U/L (<=37); Alanine Aminotransfer ALT/SGPT 32 U/L (<=46); Albumin, Serum 4.4 g/dL (3.4-4.8); Alkaline Phosphatase 72 U/L (40-129); Anion Gap 11 (5-15); BUN 18 mg/dL (4-19); BUN/Creat Ratio 14.0 RATIO (10-20); Calcium,Total 9.6 mg/dL (7.6-11.0); Carbon Dioxide 27.6 mmol/L (21.0-32.0); Chloride 101 mmol/L (98-108); Globulin 2.1 g/dL (2.2-4.2); Glucose 101 mg/dL (70-99); Potassium 4.3 mmol/L (3.3-5.1)
== END | disposition home or self-care (01) ==
LOC: MTLAB 11:02
PROVIDERS: PCP Family Medicine; Referring Provider Internal Medicine Rheumatology; Visit Provider Internal Medicine Rheumatology
DX: L40.59 Other psoriatic arthropathy (principal); Z79.899 Other long term (current) drug therapy; L40.8 Other psoriasis; K76.0 Fatty (change of) liver, not elsewhere classified
CPT/HCPCS: 36415; 80053; 85025